=== PATIENT | female | born 1990 | race Caucasian/White ===

== ENCOUNTER 2019-07-03 17:26 | Observation (INO) | payer MEDICAID, OTHER ==
[2019-07-03] MEDS ORDERED: NA CHLORIDE 0.9% 1,000 ML ONE (18:03)
[2019-07-03] MEDS ORDERED: ONDANSETRON 4 MG/2 ML VIAL ONE (18:03)
[2019-07-03 18:52] LABS: Absolute Lymphocytes (CBC) 2.2 K/uL (0.7-4.9); Basophils % 0.2 % (0-1.3); Hematocrit 47.3 % (36.0-45.0); Lymphocytes % 12.5 % (15.3-44.8); MPV 7.5 fL (7.6-11.3); RBC Red Blood Cell Count 5.13 M/uL (3.86-4.86)
[2019-07-03] MEDS ORDERED: METRONIDAZOLE 500mg IVPB 500 MG/100 ML BAG IV ONE (19:31)
[2019-07-03] MEDS ORDERED: CIPROFLOXACIN 400mg IV 400 MG/200 ML BAG IV ONE (19:31)
[2019-07-03] MEDS ORDERED: FAMOTIDINE 20 MG/2 ML VIAL IV ONE (19:31)
[2019-07-03 20:12] LABS: ALT/SGPT 21 U/L (12-78); AST/SGOT 58 U/L (15-37); Albumin 2.2 g/dL (3.4-5.0); Alkaline Phosphatase 46 U/L (45-117); BUN Blood Urea Nitrogen 17 mg/dL (7-18); Bicarbonate 26 mmol/L (21-32); Bilirubin Direct < 0.1 mg/dL (0-0.2); Bilirubin Total 0.9 mg/dL (0.2-1.0); Glucose Level 77 mg/dL (74-106); Lipase 19 U/L (73-393); Protein, Total 5.3 g/dL (6.4-8.2); Sodium Level 134 mmol/L (136-145)
--- NOTE | 2019-07-03 20:53 | RAD REPORT ---
EXAM DESCRIPTION: CT - Abdomen Pelvis W Contrast - 07/03/2019 8:33 pm CLINICAL HISTORY: Abdominal pain/vomiting COMPARISON: 2015 TECHNIQUE: Computed axial tomography of the abdomen pelvis was obtained. 100 cc Isovue-300 was admin istered intravenously. Oral contrast was not requested which limits evaluation of bowel. All CT scans are performed using dose optimization technique as appropriate and may include automated exposure control or mA/KV adjustment according to patient size. FINDINGS: The liver, spleen, pancreas, adrenal and left kidney appear unremarkable. Tiny nonobstruct ing right renal calculus. Several small gallstones are present. The wall of the distal stomach is thickened. Fluid is present within nondilated large and small bowel. There is no evidence of diverticulitis. IMPRESSION: Cholelithiasis without evidence cholecystitis Thickening of the wall of the distal stomach may indicate inflammation
--- NOTE | 2019-07-03 21:17 | ER ---
Nurse's Notes [facility] Name: Olga Lujan Age: 29 yrs Sex: Female : 1990 Arrival Date: 07/03/2019 Time: 17:31 Bed 25 Private MD: None, None Diagnosis: Abdominal tenderness;Vomiting;Diarrhea, unspecified;Elevated white blood cell count;Gastritis, unspecified;Volume depletion;Cholelithiasis Presentation: 07/02 17:31 Chief complaint: Patient states: PT STATES SHE HAS BEEN VOMITTING AND HAVING DIARREA ls4 FOR 3 WEEKS EVERY TIME SHE EATS. SHE HAS A CONSTANT 2/10 PAIN IN HER ABDOMEN BEHIND HER "BELLY BUTTON" CONSTANTLY AND THAT BECOMES A 10/10 AFTER SHE EATS. 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 Coronavirus screen: Patient denies fever greater than 100.4F, cough, shortness of breath, or difficulty breathing. Proceed with normal triage process. Ebola Screen: No symptoms or risks identified at this time. Initial Sepsis Screen: Does the patient meet any 2 criteria? HR > 90 bpm. No. Patient's initial sepsis screen is negative. Does the patient have a suspected source of infection? No. Patient's initial sepsis screen is negative. Risk Assessment: Do you want to hurt yourself or someone else? Patient reports no desire to harm self or others. Onset of symptoms was June 11, 2019. Care prior to arrival: Medication(s) given: Normal saline infusion, 500 mL, REGLAN 10 MG. Transition of care: patient was not received from another setting of care. 17:31 Method Of Arrival: EMS: [facility] ls4 17:31 Acuity: DAMASO 3 ls4 Triage Assessment: 17:41 General: Appears in no apparent distress. uncomfortable, slender, Behavior is calm, ls4 cooperative. Pain: Complains of pain in umbilical area Pain currently is 2 out of 10 on a pain scale. at worst was 10 out of 10 on a pain scale. Quality of pain is described as shooting, throbbing, Pain began suddenly, Is intermittent, episodic, Alleviated by nothing. Aggravated by eating, drinking, Noted to be grimacing, quiet/stoic, resistant to movement, withdrawn, Also complains of decreased appetite, nausea, Current management is with ZOFRAN. Neuro: No deficits noted. Cardiovascular: No deficits noted. Respiratory: No deficits noted. Respiratory effort is even, unlabored, Breath sounds are clear bilaterally. Denies cough, shortness of breath labored breathing, pain with respiration, pain with cough, pain with movement, air hunger. GI: Abdomen is flat, non-distended, Bowel sounds present X 4 quads. Abd is non tender X 4 quads Reports epigastric pain, intolerance of fluids, intolerance of food, vomiting, since 3 weeks. : No deficits noted. No signs and/or symptoms were reported regarding the genitourinary system. Derm: No deficits noted. No signs and/or symptoms reported regarding the dermatologic system. Musculoskeletal: No deficits noted. No signs and/or symptoms reported regarding the musculoskeletal system. Historical: - Allergies: 17:38 NKDA; ls4 - Home Meds: 17:41 Zofran (as hydrochloride) 4 mg oral tab 1 tabs NEEDED [Active]; Pepcid Oral [Active];ls4 - PMHx: 17:38 Hodgkin Lymphoma; ls4 - PSHx: 17:38 Feet reconstruction; ; right hip; neck for lymph node removal; ls4 17:41 [id number] placed; ls4 - Immunization history:: Adult Immunizations up to date, Last tetanus immunization: unknown, Flu vaccine is not up to date. It has been more than one year since last vaccine. - Social history:: Smoking status: Patient/guardian denies using tobacco, the patient reports quitting approximately 1 years ago, Patient/guardian denies using alcohol, street drugs, The patient lives The patient attends The patient works The patient is unemployed. Screenin:46 Abuse screen: Denies threats or abuse. Denies injuries from another. Nutritional ls4 screening: No deficits noted. Tuberculosis screening: No symptoms or risk factors identified. Fall Risk None identified. Assessment: 19:00 Reassessment: Patient appears in no apparent distress at this time. Patient and/or ls4 family updated on plan of care and expected duration. Pain level reassessed. Patient is alert, oriented x 3, equal unlabored respirations, skin warm/dry/pink. 20:00 Reassessment: Patient appears in no apparent distress at this time. Patient and/or ls4 family updated on plan of care and expected duration. Pain level reassessed. Patient is alert, oriented x 3, equal unlabored respirations, skin warm/dry/pink. recollect complete. 21:00 Reassessment: Patient appears in no apparent distress at this time. Patient and/or ls4 family updated on plan of care and expected duration. Pain level reassessed. Patient is alert, oriented x 3, equal unlabored respirations, skin warm/dry/pink. Patient states symptoms have improved. 22:00 Reassessment: Patient appears in no apparent distress at this time. Patient and/or ls4 family updated on plan of care and expected duration. Pain level reassessed. Patient is alert, oriented x 3, equal unlabored respirations, skin warm/dry/pink. Patient states feeling better. 23:12 Reassessment: Patient appears in no apparent distress at this time. Patient and/or ls4 family updated on plan of care and expected duration. Pain level reassessed. Patient is alert, oriented x 3, equal unlabored respirations, skin warm/dry/pink. TOLERATING ICE CHIPS AND POPSICLE. Vital Signs: 17:31 BP 102 / 67; Pulse 106; Resp 17; Temp 98.4(O); Pulse Ox 98% on R/A; Weight 49.9 kg; ls4 Height 5 ft. 9 in. (175.26 cm); Pain 2/10; 19:05 BP 101 / 62; Pulse 104; Resp 14; Pulse Ox 99% on R/A; Pain 2/10; ls4 20:00 BP 106 / 71; Pulse 107; Resp 14; Pulse Ox 98% on R/A; Pain 2/10; ls4 21:00 BP 96 / 74; Pulse 104; Resp 14; Pulse Ox 99% on R/A; Pain 2/10; ls4 22:21 BP 98 / 76; Pulse 106; Resp 14; Temp 98.3(O); Pulse Ox 99% on R/A; Pain 3/10; ls4 17:31 Body Mass Index 16.24 (49.90 kg, 175.26 cm) ls4 ED Course: 17:31 Patient arrived in ED. ls4 17:31 None, None is Private Physician. ls4 17:32 Chema Rojas MD is Attending Physician. kdr 17:37 Triage completed. ls4 17:45 Arm band placed on. ls4 17:46 Patient has correct armband on for positive identification. Placed in gown. Bed in low ls4 position. Call light in reach. Side rails up X 1. Adult w/ patient. Valuables Left with patient. emerging technologies director on. Pulse ox on. NIBP on. Warm blanket given. Pillow given. Diet: Patient is NPO. 17:46 No provider procedures requiring assistance completed. ls4 18:34 Radiology exam delayed due to lab results not completed at this time. test mw3 not completed at this time. 18:38 Awaiting: PT DIFFICULT STICK. VERY ANXIOUS REGARDING NEEDLE STICKS. TIME TAKEN TO GIVE ls4 VERBAL REASSURANCE AND TO START IV WITH ONLY ONE STICK. PT WANTED TO REFUSE WHEN SHE FOUND WE WOULD NEED TO START IV. 18:38 Inserted saline lock: 22 gauge in right antecubital area, using aseptic technique. ls4 Blood collected. 18:38 Initial lab(s) drawn, by me, sent to lab. Patient maintains SpO2 saturation greater ls4 than 95% on room air. 19:26 Attending Physician role handed off by Chema Rojas MD naa 19:26 Elijah Barroso MD is Attending Physician. naa 19:30 by ED staff, OMER UNABLE TO COLLECT, 2 MISSED ATTEMPTS. ls4 20:00 Lab(s) recollected, by me, sent to lab. ls4 20:00 Maintain EMS IV. Dressing intact. Good blood return noted. Site clean \\T\\ dry. Gauge \\T\\ ls 4 site: 22 LEFT HAND . 20:31 CT completed. Patient tolerated procedure well. Patient moved back from CT. bq 20:33 CT Abd/Pelvis - IV Contrast Only In Process Unspecified. EDMS 20:56 Heidi Coughlin, MIKAYLA is Primary Nurse. ls4 21:15 Mary Vasquez MD is Hospitalizing Provider. naa 23:10 IV discontinued, intact, bleeding controlled, No redness/swelling at site. Pressure ls4 dressing applied. 23:11 Inserted saline lock: 22 gauge in left antecubital area, using aseptic technique. ls4 Administered Medications: 18:00 Drug: Zofran (Ondansetron) 4 mg Route: IVP; Site: right antecubital; ls4 18:00 Drug: NS 0.9% 1000 ml Route: IV; Rate: 1 bolus; Site: right antecubital; ls4 20:00 Follow up: IV Status: Completed infusion ls4 19:22 Drug: Pepcid 20 mg Route: IVP; Site: right antecubital; ls4 20:00 Follow up: Response: No adverse reaction; Marked relief of symptoms ls4 19:27 Drug: Flagyl 500 mg Volume: 100 ml; Route: IVPB; Rate: 200 ml/hr; Infused Over: 30 ls4 mins; Site: right antecubital; 20:00 Follow up: IV Status: Completed infusion; IV Intake: 100ml ls4 19:28 Drug: Cipro 400 mg Volume: 200 ml; Route: IVPB; Infused Over: 60 mins; Site: right ls4 antecubital; 20:30 Follow up: IV Status: Completed infusion; IV Intake: 200ml ls4 22:35 Drug: ProTONIX 40 mg Route: IVP; Site: left antecubital; ls4 23:09 Follow up: Response: No adverse reaction; Marked relief of symptoms ls4 Intake: 20:00 IV: 100ml; Total: 100ml. ls4 20:30 IV: 200ml; Total: 300ml. ls4 Outcome: 21:16 Decision to Hospitalize by Provider. naa 23:44 Admitted to Med/surg accompanied by nurse, via stretcher, room 225, with chart, Report ls4 called to DARRIN DEGROOT 23:45 Condition: stable ls4 07/03 00:01 Patient left the ED. mw2 Signatures: Dispatcher [employer] EDND Elijah Barroso MD MD cha Rittger, Kevin, MD MD kdr Quilty, Betty bq [place]brook, MyKena mw2 Radha Sommers mw3 Heidi Coughlin RN RN ls4 Corrections: (The following items were deleted from the chart) 07/02 23:46 23:44 Admitted to Med/surg accompanied by nurse, via stretcher, with chart, Report ls4 called to DARRIN DEGROOT ls4
--- NOTE | 2019-07-03 21:18 | EDPHYS ---
Physician Documentation [facility] Name: Olga Lujan Age: 29 yrs Sex: Female : 1990 Arrival Date: 07/03/2019 Time: 17:31 Bed 25 Private MD: None, None ED Physician Elijah Barroso HPI: 07/02 18:30 This 29 yrs old Female presents to ER via EMS with complaints of Abdominal kdr Pain. 18:30 The patient presents with abdominal pain that is diffuse. Onset: The symptoms/episode kdr began/occurred gradually, 1 year(s) ago. The symptoms do not radiate. Associated signs and symptoms: Pertinent positives: nausea, vomiting, and diarrhea. The symptoms are described as crampy, intermittent, waxing/waning. Modifying factors: The symptoms are alleviated by having diarrhea. Severity of pain: At its worst the pain was moderate severe incapacitating just prior to arrival. The patient has experienced similar episodes in the past, For about the past year, she has been loosing weight now totaling #110. She continues to have n/v/d after every ingestion.. The patient has been recently seen by a physician: The patient was seen in the last month at [facility]. States that they did not do much of a work-up and told her she had gastroenteritis. She has continued to have pain followed by n/v/d with every feeding. Historical: - Allergies: 17:38 NKDA; ls4 - Home Meds: 17:41 Zofran (as hydrochloride) 4 mg oral tab 1 tabs NEEDED [Active]; Pepcid Oral [Active];ls4 - PMHx: 17:38 Hodgkin Lymphoma; ls4 - PSHx: 17:38 Feet reconstruction; ; right hip; neck for lymph node removal; ls4 17:41 [id number] placed; ls4 - Immunization history:: Adult Immunizations up to date, Last tetanus immunization: unknown, Flu vaccine is not up to date. It has been more than one year since last vaccine. - Social history:: Smoking status: Patient/guardian denies using tobacco, the patient reports quitting approximately 1 years ago, Patient/guardian denies using alcohol, street drugs, The patient lives The patient attends The patient works The patient is unemployed. ROS: 18:30 Constitutional: Negative for fever, chills, and weight loss, Eyes: Negative for injury, kdr pain, redness, and discharge, ENT: Negative for injury, pain, and discharge, Neck: Negative for injury, pain, and swelling, Cardiovascular: Negative for chest pain, palpitations, and edema, Respiratory: Negative for shortness of breath, cough, wheezing, and pleuritic chest pain, Back: Negative for injury and pain, : Negative for injury, bleeding, discharge, and swelling, MS/Extremity: Negative for injury and deformity, Skin: Negative for injury, rash, and discoloration, Neuro: Negative for headache, weakness, numbness, tingling, and seizure activity. Psych: Negative for depression, anxiety, suicide ideation, homicidal ideation, and hallucinations, Allergy/Immunology: Negative for hives, rash, and allergies, Endocrine: Negative for neck swelling, polydipsia, polyuria, polyphagia, and marked weight changes, Hematologic/Lymphatic: Negative for swollen nodes, abnormal bleeding, and unusual bruising. 18:30 Abdomen/GI: Positive for abdominal pain, nausea, vomiting, and diarrhea, abdominal cramps, Stool is foul smelling and frothy., Negative for constipation, rectal pain, bowel incontinence. Exam: 18:30 Constitutional: This is a well developed, somewhat nourished patient who is awake, kdr alert, and in no acute distress. Head/Face: Normocephalic, atraumatic. Eyes: Pupils equal round and reactive to light, extra-ocular motions intact. Lids and lashes normal. Conjunctiva and sclera are non-icteric and not injected. Cornea within normal limits. Periorbital areas with no swelling, redness, or edema. Neck: Trachea midline, no thyromegaly or masses palpated, and no cervical lymphadenopathy. Supple, full range of motion without nuchal rigidity, or vertebral point tenderness. No Meningismus. Chest/axilla: Normal chest wall appearance and motion. Nontender with no deformity. No lesions are appreciated. Respiratory: Lungs have equal breath sounds bilaterally, clear to auscultation and percussion. No rales, rhonchi or wheezes noted. No increased work of breathing, no retractions or nasal flaring. Back: No spinal tenderness. No costovertebral tenderness. Full range of motion. Skin: Warm, dry with normal turgor. Normal color with no rashes, no lesions, and no evidence of cellulitis. MS/ Extremity: Pulses equal, no cyanosis. Neurovascular intact. Full, normal range of motion. Neuro: Awake and alert, GCS 15, oriented to person, place, time, and situation. Cranial nerves II-XII grossly intact. Motor strength 5/5 in all extremities. Sensory grossly intact. Cerebellar exam normal. Normal gait. Psych: Awake, alert, with orientation to person, place and time. Behavior, mood, and affect are within normal limits. 18:30 Cardiovascular: Rate: tachycardic, The patient becomes tachycardic with sitting. 18:30 Abdomen/GI: Inspection: Very flat, normal BS and diffusely tender, Bowel sounds: diminished, in all quadrants, Palpation: soft, mild abdominal tenderness, in all quadrants. Vital Signs: 17:31 BP 102 / 67; Pulse 106; Resp 17; Temp 98.4(O); Pulse Ox 98% on R/A; Weight 49.9 kg; ls4 Height 5 ft. 9 in. (175.26 cm); Pain 2/10; 19:05 BP 101 / 62; Pulse 104; Resp 14; Pulse Ox 99% on R/A; Pain 2/10; ls4 20:00 BP 106 / 71; Pulse 107; Resp 14; Pulse Ox 98% on R/A; Pain 2/10; ls4 21:00 BP 96 / 74; Pulse 104; Resp 14; Pulse Ox 99% on R/A; Pain 2/10; ls4 22:21 BP 98 / 76; Pulse 106; Resp 14; Temp 98.3(O); Pulse Ox 99% on R/A; Pain 3/10; ls4 17:31 Body Mass Index 16.24 (49.90 kg, 175.26 cm) ls4 MDM: 18:30 Data reviewed: vital signs, nurses notes, lab test result(s), radiologic studies. kdr Counseling: I had a detailed discussion with the patient and/or guardian regarding: the historical points, exam findings, and any diagnostic results supporting the discharge/admit diagnosis, lab results. 19:26 Patient medically screened. [facility] 07/02 17:55 Order name: Basic Metabolic Panel; Complete Time: 21:11 kdr 07/02 17:55 Order name: CBC with Diff; Complete Time: 19:26 kdr 07/02 17:55 Order name: Creatinine for Radiology; Complete Time: 21:11 kdr 07/02 17:55 Order name: Hepatic Function; Complete Time: 21:11 kdr 07/02 17:55 Order name: Lipase; Complete Time: 21:11 kdr 07/02 17:55 Order name: Rotavirus Antigen; Complete Time: 21:11 kdr 07/02 17:55 Order name: Stool Culture [facility] 07/02 17:55 Order name: Ova And Parasites kdr 07/02 17:55 Order name: Occult Blood; Complete Time: 21:11 kdr 07/02 17:55 Order name: Fecal Leukocyte Stain [facility] 07/02 20:22 Order name: Urine --Ancillary (enter results); Complete Time: 21:11 2 07/02 22:55 Order name: C.difficile GDH Ag [facility] 07/02 22:55 Order name: Urinalysis W/Microscopic [facility] 07/02 22:55 Order name: Thyroid Stimulating Hormone [facility] 07/02 17:55 Order name: IV Saline Lock; Complete Time: 22:21 kdr 07/02 17:55 Order name: Labs collected and sent; Complete Time: 22:21 kdr 07/02 17:55 Order name: CT Abd/Pelvis - IV Contrast Only; Complete Time: 21:11 kdr 07/02 18:10 Order name: Urine Test (obtain specimen); Complete Time: 19:18 ms 07/02 22:54 Order name: CONS Pharmacy Consult [facility] 07/02 22:55 Order name: Clear Liquid [facility] 07/02 22:55 Order name: CBC with Automated Diff [facility] 07/02 22:55 Order name: CBC with Automated Diff [facility] 07/02 22:55 Order name: Comprehensive Metabolic Panel [facility] 07/02 22:55 Order name: Comprehensive Metabolic Panel [facility] 07/02 18:55 Order name: Labs - recollect needed; Complete Time: 19:27 ms Administered Medications: 18:00 Drug: Zofran (Ondansetron) 4 mg Route: IVP; Site: right antecubital; ls4 18:00 Drug: NS 0.9% 1000 ml Route: IV; Rate: 1 bolus; Site: right antecubital; ls4 20:00 Follow up: IV Status: Completed infusion ls4 19:22 Drug: Pepcid 20 mg Route: IVP; Site: right antecubital; ls4 20:00 Follow up: Response: No adverse reaction; Marked relief of symptoms ls4 19:27 Drug: Flagyl 500 mg Volume: 100 ml; Route: IVPB; Rate: 200 ml/hr; Infused Over: 30 ls4 mins; Site: right antecubital; 20:00 Follow up: IV Status: Completed infusion; IV Intake: 100ml ls4 19:28 Drug: Cipro 400 mg Volume: 200 ml; Route: IVPB; Infused Over: 60 mins; Site: right ls4 antecubital; 20:30 Follow up: IV Status: Completed infusion; IV Intake: 200ml ls4 22:35 Drug: ProTONIX 40 mg Route: IVP; Site: left antecubital; ls4 23:09 Follow up: Response: No adverse reaction; Marked relief of symptoms ls4 Disposition: 07/03/19 21:16 Hospitalization ordered by Mary Vasquez for Inpatient Admission. Preliminary diagnosis are Abdominal tenderness, Vomiting, Diarrhea, unspecified, Elevated white blood cell count, Gastritis, unspecified, Volume depletion, Cholelithiasis. - Bed requested for Telemetry/MedSurg (Inpatient). - Status is Inpatient Admission. mw2 - Condition is Fair. - Problem is new. - Symptoms have improved. Signatures: Dispatcher [employer] EDElijah Kinney MD MD cha Rittger, Kevin, MD MD kdr Villarreal, Maria ms Garcia, Cindy, MIKAYLA RN Eder Rodriguez mw2 Heidi Coughlin RN RN ls4 Corrections: (The following items were deleted from the chart) 21:40 21:16 Hospitalization Ordered by Mary Vasqeuz MD for Inpatient Admission. Preliminary naa diagnosis is Abdominal tenderness; Vomiting; Diarrhea, unspecified; Elevated white blood cell count; Gastritis, unspecified; Volume depletion. Bed requested for Telemetry/MedSurg (Inpatient). Status is Inpatient Admission. Condition is Fair. Problem is new. Symptoms have improved. naa 23:01 21:40 07/03/2019 21:16 Hospitalization Ordered by Mary Vasquez MD for Inpatient Admission. Preliminary diagnosis is Abdominal tenderness; Vomiting; Diarrhea, unspecified; Elevated white blood cell count; Gastritis, unspecified; Volume depletion; Cholelithiasis. Bed requested for Telemetry/MedSurg (Inpatient). Status is Inpatient Admission. Condition is Fair. Problem is new. Symptoms have improved. naa 07/03 00:01 07/02 23:01 07/03/2019 21:16 Hospitalization Ordered by Mary Vasquez MD for Inpatient mw2 Admission. Preliminary diagnosis is Abdominal tenderness; Vomiting; Diarrhea, unspecified; Elevated white blood cell count; Gastritis, unspecified; Volume depletion; Cholelithiasis. Bed requested for Telemetry/MedSurg (Inpatient). Status is Inpatient Admission. Condition is Fair. Problem is new. Symptoms have improved. cg
[2019-07-03] MEDS ORDERED: PANTOPRAZOLE 40 MG INJ ONE (22:41)
--- NOTE | 2019-07-03 22:45 | P.HP ---
Certification for Inpatient Patient admitted to: Observation With expected LOS: <2 Midnights Patient will require the following post-hospital care: None Practitioner: I am a practitioner with admitting privileges, knowledge of patient current condition, hospital course, and medical plan of care. Services: Services provided to patient in accordance with Admission requirements found in Title 42 Section 412.3 of the Code of Federal Regulations Patient History Date of Service: 07/03/19 Reason for admission: Persistent nausea or vomiting History of Present Illness: 29-year-old female with past medical history of Hodgkin's lymphoma on chemotherapy last cycle was 2 months ago. Follow[address] with Dr. maria, presented to the ER today because of complaint of recurrent nausea vomiting and diarrhea since the last 3 weeks. She also complained of abdominal cramps associated with the nausea or vomiting. Cramps is more in the epigastric area. She takes her Zofran at home with no significant relief. She has be evaluated as Cesar 1 week ago and told she has gastroenteritis with no medication was given. S she presented today because she was feeling weak and unable to ambulate. She has significant weight loss since start of chemo for Hodgkin's lymphoma. She was started on IV fluid with antibiotics and she feels much better now. CT of the abdomen shows thickening of the gastric area consistent with possible inflammation Allergies No Known Drug Allergies Allergy (Verified 11/29/14 10:59) Unknown Home medications list reviewed: No Home Medications: NK [No Home Meds] 06/20/14 - Past Medical/Surgical History -: Van lymphoma on chemo -: -: Feet reconstruction -: Lymph node excision -: Port-A-Cath insertion - Family History Family History: Reviewed- Non-Contributory - Social History Smoking Status: Never smoker Alcohol use: No CD- Drugs: No Caffeine use: Yes Review of Systems General: Weakness, Unremarkable Eyes: Unremarkable ENT: Unremarkable Respiratory: Unremarkable Cardiovascular: Unremarkable Gastrointestinal: Nausea, Vomiting, Abdominal Pain, Diarrhea Genitourinary: Unremarkable Musculoskeletal: Unremarkable Integumentary: Unremarkable Neurological: Weakness, Unremarkable Physical Examination - Physical Exam General: Alert, Oriented x3, Cachectic HEENT: Atraumatic, Normocephalic, PERRLA, Other (Dry oral mucosa) Neck: Supple, 2+ carotid pulse no bruit, JVD not distended Respiratory: Clear to auscultation bilaterally, Normal air movement Cardiovascular: No edema, Normal pulses, Regular rate/rhythm, Normal S1 S2 Gastrointestinal: Normal bowel sounds, Soft and benign, Non-distended, No tenderness Musculoskeletal: No clubbing, No swelling Integumentary: No rashes, No breakdown Neurological: Normal speech, Normal strength at 5/5 x4 extr, Normal tone External genitalia: No edema, No lesions - Studies Laboratory Data (last 24 hrs) 07/03/19 20:00: Creatinine 0.57 07/03/19 20:00: Sodium 134 L, Potassium 4.0, BUN 17, Creatinine 0.54 L, Glucose 77, Total Bilirubin 0.9, AST 58 H, ALT 21, Alkaline Phosphatase 46, Lipase 19 L 07/03/19 18:37: WBC 17.9 H, Hgb 16.6 H, Hct 47.3 H, Plt Count 338 Microbiology Data (last 24 hrs): 07/03/19 18:48 Stool Rotavirus Antigen - Final 07/03/19 18:48 Stool Occult Blood - Final Imagings Data: CT abdomen FINDINGS: The liver, spleen, pancreas, adrenal and left kidney appear unremarkable. Tiny nonobstructing right renal calculus. Several small gallstones are present. The wall of the distal stomach is thickened. Fluid is present within nondilated large and small bowel. There is no evidence of diverticulitis. IMPRESSION: Cholelithiasis without evidence cholecystitis Thickening of the wall of the distal stomach may indicate inflammation Assessment and Plan - Problems (Diagnosis) (1) Gastroenteritis Current Visit: Yes Status: Acute (2) Dehydration Current Visit: Yes Status: Acute - Advance Directives Does patient have a Living Will: No Does patient have a Durable POA for Healthcare: No - Code Status/Comfort Care Code Status Assessed: Yes Code Status: Full Code Physician Review: Patient Assessed, Agree with Above Assessment and Plan Physician Review Additional Text: Gastroenteritis-possibly related to recent chemotherapy use -continue gentle IV fluid hydration. -continue IV Zofran p.r.n., will do scopolamine patch -continue empirical antibiotics with Flagyl and Levaquin -will obtain stool for ova and parasites -start patient on clear liquid diet and advanced as tolerated -if tolerating p.o. well in the a.m. patient can be discharged home DVT prophylaxis-subcutaneous heparin Advanced directives full code
[2019-07-03] MEDS ORDERED: ONDANSETRON 4 MG/2 ML VIAL IV PRN (22:47)
[2019-07-03] MEDS ORDERED: ACETAMINOPHEN 500 MG TAB PO PRN (22:47)
[2019-07-03] MEDS ORDERED: MORPHINE 2 MG/ML SYR IV PRN (22:47)
[2019-07-03] MEDS ORDERED: HYDRALAZINE HCL 20 MG/ML VIAL IV PRN (22:50)
[2019-07-03] MEDS ORDERED: SCOPOLAMINE HYDROBROMIDE PATCH TD ONE (22:51)
[2019-07-04] MEDS: D5 0.9 NS 1,000 ML IV SCH ×3 (00:13→12:20)
[2019-07-04 00:19] VITALS: BMI 16.5
[2019-07-04] MEDS: METRONIDAZOLE 250mg IVPB 250 MG/50 ML BAG IV SCH ×3 (01:00→16:29)
[2019-07-04] MEDS ORDERED: METRONIDAZOLE 500mg IVPB 500 MG/100 ML BAG IV ONE (01:47)
[2019-07-04] MEDS ORDERED: Levofloxacin500mg IV 500 MG/100 ML BAG IV SCH (05:00)
[2019-07-04 05:59] LABS: Absolute Lymphocytes (CBC) 2.4 K/uL (0.7-4.9); Basophils % 0.2 % (0-1.3); Hematocrit 38.6 % (36.0-45.0); Lymphocytes % 15.5 % (15.3-44.8); MPV 7.5 fL (7.6-11.3); RBC Red Blood Cell Count 4.24 M/uL (3.86-4.86)
[2019-07-04 06:30] LABS: ALT/SGPT 16 U/L (12-78); AST/SGOT 23 U/L (15-37); Albumin 2.1 g/dL (3.4-5.0); Alkaline Phosphatase 40 U/L (45-117); BUN Blood Urea Nitrogen 12 mg/dL (7-18); Bicarbonate 27 mmol/L (21-32); Bilirubin Total 0.7 mg/dL (0.2-1.0); Glucose Level 81 mg/dL (74-106); Protein, Total 4.2 g/dL (6.4-8.2); Sodium Level 136 mmol/L (136-145)
[2019-07-04 06:33] LABS: Potassium 2.5 mmol/L (3.5-5.1)
[2019-07-04] MEDS: POTASSIUM CL SA 10 MEQ TAB PO SCH ×3 (08:11→14:32)
[2019-07-04] MEDS: POTASSIUM CL 40 MEQ in NA CHLORIDE 0.9% 500 ML IV SCH ×2 (08:11→12:15)
[2019-07-04] MEDS: PANTOPRAZOLE 40MG TABLET PO SCH ×2 (08:11→16:29)
[2019-07-04] MEDS ORDERED: ENOXAPARIN 40 MG/0.4 ML SQ SCH (09:00)
[2019-07-04 09:48] VITALS: O2SAT 98
[2019-07-04 14:26] LABS: C.diff Antigen/Toxin Ag neg : Tox neg (NEG : NEG)
[2019-07-04 17:20] VITALS: BP 89/53; TEMP 97.8
--- NOTE | 2019-07-04 20:16 | DS ---
Date of Discharge: 07/04/2019 Discharge Diagnoses: 1.Acute gastroenteritis. 2.Acute dehydration. 3.Hypokalemia. 4.Hodgkin lymphoma, on chemotherapy. 5.Hyponatremia, resolved. 6.Severe protein-calorie malnutrition. Hospital Course: Patient is a 29-year-old female with past medical history of Hodgkin lymphoma, on c hemotherapy, comes in with persistent nausea and vomiting. Patient was admitted to the hospital for IV hydration and IV antibiotics. CT scan showed thickening of the gastric area consistent with infla mmation. Patient also had some diarrhea. Stool studies were obtained. C difficile was negative. F ecal occult blood was also negative. Fecal leukocyte stain showed few present. Rotavirus was negati ve as well. Culture and sensitivity are pending at this time. The patient's white blood cell count trended down. She felt significantly better with treatment. Her blood pressure improved. She does not have any signs of sepsis. She is not febrile or tachycardic. Overall, patient did well. Her di et was advanced and was able to tolerate a GI soft diet. Patient was then cleared for discharge and was sent home in a stable condition. Activity: As tolerated. Medications: As per medication reconciliation list. Diet: Patient to be on a bland diet. Followup: To follow up with GI and Oncology regarding her lymphoma in the next 1-2 weeks. Follow up with primary care physician in 2-3 days. Return to ER for worsening condition. Physical Examination: General: Awake, alert, oriented x3. No acute distress. Frail, cachectic female. BMI 16. CV: S1, S2. Respiratory: Moving air well bilaterally. Abdomen: Soft, nontender, nondistended. Positive bowel sounds. Extremities: No clubbing, cyanosis, or edema. Neurologic: Nonfocal. SA/MODL Voice ID: [id number] Report ID: [id number]
== END 2019-07-04 18:36 | disposition home or self-care (01) ==
LOC: ER 17:26 → ERHOLD 23:04 → 2ND 23:13
PROVIDERS: ADMIT Internal Medicine; ATTEND Family Medicine
DX: K52.9 Noninfective gastroenteritis and colitis, unspecified (principal); E86.0 Dehydration; C81.90 Hodgkin lymphoma, unspecified, unspecified site; E87.6 Hypokalemia; E87.1 Hypo-osmolality and hyponatremia; E43 Unspecified severe protein-calorie malnutrition; Z68.1 Body mass index [BMI] 19.9 or less, adult; E86.9 Volume depletion, unspecified; K80.20 Calculus of gallbladder without cholecystitis without obstruction; Z79.899 Other long term (current) drug therapy
CPT/HCPCS: 96365; 96361; 96368; 87045; 85025 ×2; 80048; 36415; 89055; 87177; 82274; 81025; 84132; 80076; 87046; 87209; 84443; 87324; 83690; 80053; 87449; 87425; 74177; 96375; 99285; Q9967; C9113; J1650; J7042 ×2; J7040 ×2; J7030; J2405 ×2; J0744; G0378 ×2

== ENCOUNTER 2021-07-31 11:16 | Inpatient (IN) | payer OTHER ==
--- OUTSIDE RECORDS SUMMARY | 2021-07-31 11:18 | XMS REPORT | Continuity of Care Document ---
:1990 Author Organization [facility] t Address [address] [place] [address] Care Team Providers Name Role Phone KAREN Attending Clinician Unavailable JERE WATSON Attending Clinician Unavailable JERE WATSON Admitting Clinician Unavailable Problems This patient has no known problems. Allergies, Adverse Reactions, Alerts This patient has no known allergies or adverse reactions. Medications This patient has no known medications. Procedures This patient has no known procedures. Encounters Start End Encounter Admission Attending Care Care Encounter Source Date/Time Date/Time Type Type Clinicians Facility Department ID 2019-09-21 2019-09-21 Outpatient [facility] [id number] [place] 00:00:00 00:00:00 GABE 471 [facility] 2019-09-21 2019-09-21 Outpatient [facility] [id number] [place] 00:00:00 00:00:00 GABE 665 [facility] 2019-09-21 2019-09-21 Outpatient [facility] [id number] [place] 00:00:00 00:00:00 GABE 969 [facility] i 2019-09-02 2019-09-02 Outpatient [facility] [id number] [place] 00:00:00 00:00:00 GABE 870 [facility] i 2019-09-02 2019-09-02 Outpatient [facility] [id number] [place] 00:00:00 00:00:00 GABE 234 [facility] i 2019-04-01 2019-04-02 Outpatient [facility] [id number] [place] 00:00:00 00:00:00 Johnnie WATSON Method [facility] [address] [facility] 2019-02-10 2019-02-10 Outpatient [facility] [id number] [place] 00:00:00 00:00:[address] GABE [address] Results This patient has no known results.
[2021-07-31 12:29] LABS: Absolute Lymphocytes (CBC) 1.5 K/uL (0.7-4.9); Hematocrit 13.9 % (36.0-45.0); Lymphocytes % 3.7 % (15.3-44.8); MPV 8.2 fL (7.6-11.3); RBC Red Blood Cell Count 1.25 M/uL (3.86-4.86)
[2021-07-31 12:34] LABS: Protime INR 2.29
[2021-07-31 12:46] LABS: Albumin 1.5 g/dL (3.4-5.0); Potassium 4.2 mmol/L (3.5-5.1)
[2021-07-31 12:48] LABS: Bilirubin Total 5.3 mg/dL (0.2-1.0)
[2021-07-31] MEDS ORDERED: MORPHINE 2 MG/ML SYR ONE (12:57)
[2021-07-31] MEDS ORDERED: NA CHLORIDE 0.9% 100 ML IV ONE (12:57)
[2021-07-31] MEDS ORDERED: LORazepam 2 MG/ML VIAL ONE (12:57)
[2021-07-31] MEDS ORDERED: ONDANSETRON 4 MG/2 ML VIAL ONE (12:57)
[2021-07-31] MEDS ORDERED: AZITHROMYCIN 500 MG INJ IVPB ONE (12:57)
[2021-07-31] MEDS ORDERED: CEFTRIAXONE 1000 MG/VIAL ONE (12:57)
[2021-07-31] MEDS ORDERED: NA CHLORIDE 0.9% 1,000 ML ONE (12:57)
[2021-07-31 13:04] LABS: Anisocytosis 2+; Basophilic Stippling 1+; Blood Morphology Comment NOTED (NOT SEEN); Macrocytosis 1+; Platelet Estimate ADEQ; Polychromasia 1+; Toxic Granulation PRESENT
--- NOTE | 2021-07-31 13:05 | RAD REPORT ---
EXAM DESCRIPTION: RAD - Chest Single View - 07/31/2021 12:41 pm CLINICAL HISTORY: SOB COMPARISON: Portable 11/05/2014 ; lung base images from 07/03/2019 CT study TECHNIQUE: AP portable chest image was obtained 07/31/2021 12:41 pm . FINDINGS: There is complete or near complete opacification of the right hemithorax with tracheal rem aining in the midline. Interstitial markings are minimally prominent in the left lung field without p eripheral mass or consolidation. Right hilum and right heart border are obscured. Heart does not appe ar to be enlarged. No pneumothorax. No left-sided measurable pleural effusion. Right-sided Port-A-Cat h is in place. Tip is at the distal SVC. No acute bony abnormality seen. No acute aortic findings arturo pected. IMPRESSION: Complete opacification of the right hemithorax. This is probably a large right pleural e ffusion with lung parenchymal atelectasis. Right hemithorax mass lesion could be present in addition to fluid. Follow-up CT chest imaging is rec ommended.
[2021-07-31] MEDS ORDERED: ACETAMINOPHEN 500 MG TAB PO PRN (14:51)
[2021-07-31] MEDS ORDERED: ONDANSETRON 4 MG/2 ML VIAL IV PRN (14:51)
--- NOTE | 2021-07-31 15:11 | RAD REPORT ---
EXAM DESCRIPTION: CT - Chest For Pe Angio - 07/31/2021 2:28 pm CLINICAL HISTORY: noShortness of breath, history of lymphoma COMPARISON: THORAX WO CONTRAST dated 06/23/2015; Abdomen Pelvis W Contrast dated 07/03/2019; Chest A bdomen Pelvis W Cont dated 10/18/2015 TECHNIQUE: Dynamically enhanced 3 mm thick images of the chest were obtained during administration o f approximately 150mL Isovue 370 IV contrast. Coronal and oblique MIP reconstruction images were gene rated and reviewed. Exam utilizes a protocol to evaluate the pulmonary arterial tree. All CT scans are performed using dose optimization technique as appropriate and may include automated exposure control or mA/KV adjustment according to patient size. FINDINGS: No pulmonary emboli are identified. The aorta as imaged shows no acute or suspicious finding. No pericardial thickening or effusion. No c ardiomegaly. There is a large right-sided pleural effusion present there is complete right lower lobe atelectasis and near complete right upper lobe atelectasis sparing only a small portion of the medial right apex. There is a consolidated airspace process maintaining the volume of the right middle lobe. Left lung field is clear of any significant process. There is circumferential narrowing of the right mainstem b ronchus at the bifurcation into the right upper lobe and bronchus intermedius. Right middle lobe bron chus show significant circumferential wall thickening. No left-sided pleural effusion. There is no pn eumothorax. Spine mediastinal detail is limited. There is a congested or edematous appearance to the mediastinum and bilateral hilar regions likely a combination of edema and mediastinal lymphadenopathy. There is a n overall fluid retention pattern throughout the subcutaneous fatty tissues. No chest wall masses or bulky axillary lymphadenopathy. Right-sided Port-A-Cath is in place. The enlarged liver is grossly abnormal with numerous variably sized low-density masses throughout par enchyma. The liver is only partially imaged. Likewise there is splenomegaly with heterogeneous parenc hymal attenuation only partially imaged. There is extensive bone destructive change throughout the imaged portions of the spine. The T8-10 and T12 body shows significant bone loss change. Overall vertebral body height is maintained in T8-10. T here is partial loss in height approximately 20% in the T12 body. Multiple rib metastatic lesions are present. IMPRESSION: No pulmonary emboli identified. Large right-sided pleural effusion with complete atelectasis of the right lower lobe and near complet e atelectasis of the right upper lobe.Airspace infiltration into the right middle lobe maintains righ t middle lobe volume. Right to left mediastinal shift is evident due to the large right pleural effusion. Edema and/or abno rmal lymphadenopathy is present in the mediastinum bilateral hilar regions. There is fluid retention throughout the subcutaneous fatty tissues. Grossly abnormal liver and spleen with extensive tumor infiltration of the parenchyma. Extensive bone destructive metastatic change in the spine most pronounced in the T8-T12 region. Bone loss changes in the T12 body are concerning for possible compression fracture. No encroachment of the central canal. Patient has a known lymphoma diagnosis but no recent imaging to establish whether these are none or p rogressive findings.
--- NOTE | 2021-07-31 15:27 | ER ---
Nurse's Notes [facility] Name: Olga Lujan Age: 31 yrs Sex: Female : 1990 Arrival Date: 07/31/2021 Time: 11:34 Bed 4 Private MD: Diagnosis: Anemia, unspecified Presentation: 07/31 11:34 Chief complaint: Patient states: shortness of breath and cough that began 2 days ago ss and is getting much worse now with back pain. HX of Liver CA and Hodgkins lymphoma. EMS reports that initial O2 on RA was 88-90%. Coronavirus screen: Client presents with at least one sign or symptom that may indicate coronavirus-19. Provider contacted for isolation considerations. Ebola Screen: Patient denies exposure to infectious person. Patient denies travel to an Ebola-affected area in the 21 days before illness onset. Initial Sepsis Screen: Does the patient meet any 2 criteria? RR > 20 per min. HR > 90 bpm. Does the patient have a suspected source of infection? Yes: Productive cough/pneumonia. Risk Assessment: Do you want to hurt yourself or someone else? Patient reports no desire to harm self or others. Onset of symptoms was July 29, 2021. 11:34 Acuity: DAMASO 2 ss 11:34 Method Of Arrival: [facility] Assessment: 12:12 General: Appears uncomfortable, Behavior is cooperative, anxious. Respiratory: Reports cespedes shortness of breath cough that is pain with cough Pain is 7 out of 10 on a pain scale. Onset: The symptoms/episode began/occurred gradually, the patient has moderate shortness of breath. Historical: - Allergies: 11:59 NKDA; ss - PMHx: 11:59 Hodgkin Lymphoma; Liver CA; ss - PSHx: 11:59 Appendectomy; Lymph nodes removed; section; ss - Immunization history:: Adult Immunizations up to date. - Social history:: Smoking status: Patient reports the use of cigarette tobacco products, smokes one-half pack cigarettes per day. - Family history:: not pertinent. Screenin:11 Abuse screen: Denies threats or abuse. Nutritional screening: No deficits noted. cespedes Tuberculosis screening: No symptoms or risk factors identified. Fall Risk IV access (20 points). Assessment: 12:11 Pain: Complains of pain in back. Cardiovascular: Rhythm is sinus tachycardia. cespedes Respiratory: Airway is patent Respiratory effort is labored, shallow, Breath sounds are diminished bilaterally. Derm: Skin is jaundiced. Vital Signs: 11:34 BP 109 / 53; Pulse 144; Resp 36; Temp 99.2(O); Pulse Ox 99% on 2 lpm NC; Weight 52.16 ss kg; Height 5 ft. 8 in. (172.72 cm); Pain 8/10; 13:18 BP 100 / 49; Pulse 139; Resp 2; Pulse Ox 92% on 2 lpm NC; cespedes 14:50 BP 92 / 48; Pulse 135; Resp 22; Pulse Ox 90% on 2 lpm NC; cespedes 11:34 Body Mass Index 17.49 (52.16 kg, 172.72 cm) ss ED Course: 11:34 Patient arrived in ED. ds1 11:46 Elyse Richardson MD is Attending Physician. ma2 11:54 Samantha Grayson, RN is Primary Nurse. cespedes 11:56 Blood Culture Adult (2) Sent. cespedes 11:56 CBC with Diff Sent. cespedes 11:56 CMP Sent. cespedes 11:56 Lactate Sent. cespedes 11:56 Protime (+inr) Sent. cespedes 11:56 Ptt, Activated Sent. cespedes 11:59 Triage completed. ss 11:59 Arm band placed on right wrist. ss 12:11 No provider procedures requiring assistance completed. Accessed [facility]. cespedes 12:11 Patient has correct armband on for positive identification. Bed in low position. cespedes 12:43 Chest Single View XRAY In Process Unspecified. EDMS 14:31 CT Chest For PE Angio In Process Unspecified. EDMS 15:26 Elyse Lima MD is Hospitalizing Provider. ma2 Administered Medications: 13:00 Drug: NS 0.9% 1000 ml Route: IV; Rate: 1 bolus; Site: Other; cespedes 13:00 Drug: Rocephin (cefTRIAXone) 1 grams Route: IV; Rate: calculated rate; Site: Other; cespedes 13:12 Follow up: Response: No adverse reaction; IV Status: Completed infusion cespedes 13:00 Drug: AZITHromycin 500 mg Route: IVPB; Infused Over: 1 hrs; Site: Other; cespedes 13:00 Drug: Ativan (LORazepam) 1 mg Route: IVP; Site: Other; cespedes 13:12 Follow up: Response: No adverse reaction cespedes 13:00 Drug: morphine 2 mg Route: IVP; Site: Other; cespedes 13:12 Follow up: Response: No adverse reaction cespedes 13:00 Drug: Zofran (Ondansetron) 4 mg Route: IVP; Site: Other; cespedes 13:12 Follow up: Response: No adverse reaction cespedes 13:12 Follow up: Response: No adverse reaction cespedes 13:00 Drug: NS 0.9% 1000 ml Route: IV; Rate: 1 bolus; Site: Other; cespedes 18:00 CANCELLED (errorr): morphine 4 mg IVP once; RASS on ADMIN: Combtv4, Very Agttd3, cespedes Agttd2, Rstlss1, AlertClm0, Drwsy-1, Lt Sdtn-2, Mod Sdtn-3, Dp Sdtn-4, UnArsble-5 18:00 CANCELLED (Duplicate Order): Zofran (Ondansetron) 4 mg IVP once; over 2 minutes cespedes Outcome: 15:26 Decision to Hospitalize by Provider. ma2 16:58 Patient left the ED. ph Signatures: Dispatcher [employer] [facility] Annmarie Norris ds1 Genesis Dillon RN RN Мария Cannon RN RN Elyse Richardson MD MD [facility] Samantha Grayson RN RN cespedes
--- NOTE | 2021-07-31 15:27 | EDPHYS ---
Physician Documentation [facility] Name: Olga Lujan Age: 31 yrs Sex: Female : 1990 Arrival Date: 07/31/2021 Time: 11:34 Bed 4 Private MD: ED Physician Elyse Richardson HPI: 07/31 12:25 This 31 yrs old Female presents to ER via EMS with complaints of Shortness Of Breath. ma2 12:25 Associated signs and symptoms: Pertinent negatives: productive cough, dizziness, ma2 hemoptysis, loss of consciousness, visual changes. Associated signs and symptoms: Pertinent positives: productive cough, Pertinent negatives: chest pain, nausea, vomiting. Patient has a history of liver cancer, Hodgkin lymphoma, she has not been following up with any doctor over the last year, no chemotherapy or radiation therapy during last year, she presents with cough shortness of breath for 3 days, patient is also tachypneic and tachycardic. She stated she never had this before. Of note she had DVT in right upper extremity according to patient where she was on Lovenox shots for short period of time. Patient does not take blood thinners or any other medication at this time. Historical: - Allergies: 11:59 NKDA; ss - PMHx: 11:59 Hodgkin Lymphoma; Liver CA; ss - PSHx: 11:59 Appendectomy; Lymph nodes removed; section; ss - Immunization history:: Adult Immunizations up to date. - Social history:: Smoking status: Patient reports the use of cigarette tobacco products, smokes one-half pack cigarettes per day. - Family history:: not pertinent. ROS: 12:25 Constitutional: Negative for fever, chills, and weight loss. ma2 12:25 All other systems are negative. Exam: 12:25 Constitutional: Patient is in respiratory distress, tachypneic tachycardic pale ma2 looking. Eyes: Pupils equal round and reactive to light, extra-ocular motions intact. Lids and lashes normal. Conjunctiva and sclera are non-icteric and not injected. Cornea within normal limits. Periorbital areas with no swelling, redness, or edema. ENT: Nares patent. No nasal discharge, no septal abnormalities noted. Tympanic membranes are normal and external auditory canals are clear. Oropharynx with no redness, swelling, or masses, exudates, or evidence of obstruction, uvula midline. Mucous membranes moist. Neck: Trachea midline, no thyromegaly or masses palpated, and no cervical lymphadenopathy. Supple, full range of motion without nuchal rigidity, or vertebral point tenderness. No Meningismus. Chest/axilla: Normal chest wall appearance and motion. Nontender with no deformity. No lesions are appreciated. Cardiovascular: Tachycardic to 144 bpm, with a normal S1 and S2. No gallops, murmurs, or rubs. Normal PMI, no JVD. No pulse deficits. Respiratory: In respiratory distress breathing 36 breaths/min, working hard to breathe using accessory muscles, diffuse Rales in bilateral bases, otherwise no wheezes Abdomen/GI: Soft, non-tender, with normal bowel sounds. No distension or tympany. No guarding or rebound. No evidence of tenderness throughout. Back: No spinal tenderness. No costovertebral tenderness. Full range of motion. Skin: Warm, dry with normal turgor. Normal color with no rashes, no lesions, and no evidence of cellulitis. MS/ Extremity: Pulses equal, no cyanosis. Neurovascular intact. Full, normal range of motion. Neuro: Awake and alert, GCS 15, oriented to person, place, time, and situation. Cranial nerves II-XII grossly intact. Motor strength 5/5 in all extremities. Sensory grossly intact. Cerebellar exam normal. Normal gait. Vital Signs: 11:34 BP 109 / 53; Pulse 144; Resp 36; Temp 99.2(O); Pulse Ox 99% on 2 lpm NC; Weight 52.16 ss kg; Height 5 ft. 8 in. (172.72 cm); Pain 8/10; 13:18 BP 100 / 49; Pulse 139; Resp 2; Pulse Ox 92% on 2 lpm NC; cespedes 14:50 BP 92 / 48; Pulse 135; Resp 22; Pulse Ox 90% on 2 lpm NC; cespedes 11:34 Body Mass Index 17.49 (52.16 kg, 172.72 cm) ss MDM: 11:46 Patient medically screened. ma2 12:25 Differential diagnosis: Anemia Anxiety Reaction Bronchitis Myocardial Infarction ma2 pneumonia, pulmonary edema, Pulmonary Embolism reactive airway disease. 13:06 Data reviewed: vital signs, nurses notes, EMS record. ED course: Discussed with Dr. epi Higuera and she advised that patient can be admitted to our hospital for transfusion and evaluation for anemia. As far as Hodgkin lymphoma patient can follow-up on outpatient basis with her oncologist in [place].. ED course: Patient has anemia hemoglobin 3.9 she also has sepsis with tachypnea tachycardia WBC 40.. 07/31 11:55 Order name: Blood Culture Adult (2) 07/31 11:55 Order name: CBC with Diff 07/31 11:55 Order name: CMP; Complete Time: 12:52 07/31 11:55 Order name: Lactate; Complete Time: 12:52 07/31 11:55 Order name: Protime (+inr); Complete Time: 12:52 07/31 11:55 Order name: Ptt, Activated; Complete Time: 12:52 07/31 11:55 Order name: Urine Culture 07/31 11:55 Order name: Urine Microscopic Only 07/31 12:22 Order name: SARS-COV-2 RT PCR (Document "Date of Onset" if Symptomatic); Complete Time: [facility] 15:05 07/31 13:05 Order name: Manual Differential [facility] 07/31 14:36 Order name: Type And Screen 07/31 14:59 Order name: Basic Metabolic Panel [facility] 07/31 14:59 Order name: Basic Metabolic Panel [facility] 07/31 11:52 Order name: Chest Single View XRAY; Complete Time: 15:05 [facility] 07/31 12:02 Order name: CT Chest For PE Angio; Complete Time: 15:26 [facility] 07/31 14:59 Order name: CBC with Automated Diff [facility] 07/31 14:59 Order name: CBC with Automated Diff [facility] 07/31 15:56 Order name: Antibody Identification [facility] 07/31 16:11 Order name: Packed RBC Leukored [facility] 07/31 16:17 Order name: Lactate Sepsis 2 HR Follow-up [facility] 07/31 11:54 Order name: IV Saline Lock - Large Bore; Complete Time: 11:56 07/31 11:55 Order name: Cardiac monitoring; Complete Time: 11:55 07/31 11:55 Order name: EKG - Nurse/Tech; Complete Time: 13:48 07/31 11:55 Order name: Labs collected and sent; Complete Time: 11:55 07/31 11:55 Order name: O2 Per Protocol; Complete Time: 11:55 cespedes 07/31 11:55 Order name: O2 Sat Monitoring; Complete Time: 11:55 [place]pedes 07/31 12:12 Order name: Labs - recollect needed: recollect all tubes; Complete Time: 12:25 bd 07/31 12:56 Order name: Transfuse: 3 units pRBC, rate: 1 unit over 1 hour ma2 07/31 14:58 Order name: CONS Physician Consult EDMS 07/31 14:58 Order name: Heart Healthy EDMS 07/31 14:58 Order name: EKG Electrocardiogram EDMS 07/31 14:58 Order name: EKG Electrocardiogram EDMS 07/31 14:59 Order name: EKG Electrocardiogram EDMS 07/31 14:59 Order name: EKG Electrocardiogram EDMS 07/31 14:59 Order name: EKG Electrocardiogram EDMS 07/31 14:59 Order name: EKG Electrocardiogram EDMS 07/31 14:59 Order name: EKG Electrocardiogram EDMS 07/31 14:59 Order name: EKG Electrocardiogram EDMS 07/31 14:59 Order name: EKG Electrocardiogram EDMS 07/31 14:59 Order name: EKG Electrocardiogram EDMS 07/31 14:59 Order name: EKG Electrocardiogram EDMS Administered Medications: 13:00 Drug: NS 0.9% 1000 ml Route: IV; Rate: 1 bolus; Site: Other; cespedes 13:00 Drug: Rocephin (cefTRIAXone) 1 grams Route: IV; Rate: calculated rate; Site: Other; cespedes 13:12 Follow up: Response: No adverse reaction; IV Status: Completed infusion cespedes 13:00 Drug: AZITHromycin 500 mg Route: IVPB; Infused Over: 1 hrs; Site: Other; cespedes 13:00 Drug: Ativan (LORazepam) 1 mg Route: IVP; Site: Other; cespedes 13:12 Follow up: Response: No adverse reaction cespedes 13:00 Drug: morphine 2 mg Route: IVP; Site: Other; cespedes 13:12 Follow up: Response: No adverse reaction cespedes 13:00 Drug: Zofran (Ondansetron) 4 mg Route: IVP; Site: Other; cespedes 13:12 Follow up: Response: No adverse reaction cespedes 13:12 Follow up: Response: No adverse reaction cespedes 13:00 Drug: NS 0.9% 1000 ml Route: IV; Rate: 1 bolus; Site: Other; cespedes 18:00 CANCELLED (errorr): morphine 4 mg IVP once; RASS on ADMIN: Combtv4, Very Agttd3, cespedes Agttd2, Rstlss1, AlertClm0, Drwsy-1, Lt Sdtn-2, Mod Sdtn-3, Dp Sdtn-4, UnArsble-5 18:00 CANCELLED (Duplicate Order): Zofran (Ondansetron) 4 mg IVP once; over 2 minutes cespedes Disposition Summary: 07/31/21 15:26 Hospitalization Ordered Hospitalization Status: Inpatient Admission [facility] Provider: Elyse Lima Location: Telemetry/MedSurg (observation) ma2 Condition: Stable ma Problem: new ma2 Symptoms: are unchanged nh2 Bed/Room Type: Standard [facility] Room Assignment: 214(07/31/21 15:50) bd Diagnosis - Anemia, unspecified [facility] Forms: - Medication Reconciliation Form nh2 - SBAR form nh2 Signatures: Dispatcher [employer] EDMS Cyndi Zhao Shelby, RN RN Elyse Richardson MD MD [facility] Samantha Grayson RN RN Corrections: (The following items were deleted from the chart) 11:56 11:54 Accucheck ordered. [facility] 15:50 15:26 ma2 bd
[2021-07-31 17:14] VITALS: BMI 17.4
[2021-07-31] MEDS: NA CHLORIDE 0.9% 1,000 ML IV SCH (17:34)
--- NOTE | 2021-07-31 18:45 | P.HP ---
Certification for Inpatient Patient admitted to: Inpatient With expected LOS: >2 Midnights Patient will require the following post-hospital care: None Practitioner: I am a practitioner with admitting privileges, knowledge of patient current condition, hospital course, and medical plan of care. Services: Services provided to patient in accordance with Admission requirements found in Title 42 Section 412.3 of the Code of Federal Regulations Patient History Date of Service: 07/31/21 Reason for admission: History of Hodgkin's lymphoma with severe anemia History of Present Illness: Patient is a 31-year-old female who came to the hospital with severe anemia. Patient has a history of Hodgkin's lymphoma. Patient has not been the most compliant patient with her treatments. 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 However, her Hodgkin's lymphoma is fairly advanced at this stage. She has been getting chemotherapy for 10 years. She no longer wants to get chemotherapy. She will be admitted to the hospital for blood transfusion. Allergies No Known Drug Allergies Allergy (Verified 11/29/14 10:59) Unknown Home Medications: NK [No Home Meds] 07/31/21 - Past Medical/Surgical History Has patient received pneumonia vaccine in the past: No Diabetic: No -: Van lymphoma on chemo -: -: Feet reconstruction -: Lymph node excision -: Port-A-Cath insertion -: Appendectomy - Family History Father Notes: no medical condition Mother Medical History: Cancer Notes: bone ca - Social History Smoking Status: Former smoker Alcohol use: No CD- Drugs: No Caffeine use: No Place of Residence: Home Review of Systems 10-point ROS is otherwise unremarkable Physical Examination - Vital Signs Temperature: 99.0 F Blood Pressure: 108/55 Pulse: 136 Respirations: 30 Pulse Ox (%): 89 - Physical Exam General: Alert, In no apparent distress, Oriented x3, Cachectic, Other (Patient is very emaciated and disheveled) HEENT: Atraumatic, PERRLA, Mucous membr. moist/pink, EOMI, Sclerae nonicteric Neck: Supple, 2+ carotid pulse no bruit, No LAD, Without JVD or thyroid abnormality Respiratory: Clear to auscultation bilaterally, Normal air movement Cardiovascular: Regular rate/rhythm, Normal S1 S2, No murmurs Gastrointestinal: Normal bowel sounds, Soft and benign, Non-distended, No tenderness Musculoskeletal: No clubbing, No swelling, No tenderness Integumentary: No rashes Neurological: Normal speech, Sensation intact, Cranial nerves 3-12 intact, Abnormal gait, Abnormal strength Lymphatics: No axilla or inguinal lymphadenopathy - Studies Laboratory Data (last 24 hrs) 07/31/21 12:20: PT 25.6 H, INR 2.29, APTT 45.7 H 07/31/21 12:20: Sodium 139, Potassium 4.2, BUN 26 H, Creatinine 0.81, Glucose 53 L, Total Bilirubin 5.3 H*, AST 103 H, ALT 21, Alkaline Phosphatase 303 H 07/31/21 12:20: WBC 41.3 H*, Hgb 3.9 L*, Hct 13.9 L*, Plt Count 294 Assessment & Plan - Problems (Diagnosis) (1) Severe anemia Current Visit: Yes Status: Acute (2) Hodgkins lymphoma Current Visit: Yes Status: Acute (3) Lactic acidosis Current Visit: Yes Status: Acute - Plan Plan: 1. Transfuse 3 units of packed red blood cells. 2. Gentle hydration 3. Monitor labs 4. Monitor electrolytes 5. GI and DVT prophylaxis Have discussed long-term care for patient as she is very emaciated and cachectic. She can barely take a couple steps without getting short of breath and fatigue. She is not wanting any chemotherapy at this time. We will discuss hospice care with the patient. - Advance Directives Does patient have a Living Will: No Does patient have a Durable POA for Healthcare: No - Code Status/Comfort Care Code Status Assessed: Yes Code Status: Full Code Critical Care: No Time Spent Managing PTS Care (In Minutes): 45
[2021-07-31] MEDS: PANTOPRAZOLE 40 MG INJ IVP SCH (22:07)
[2021-08-01] MEDS ORDERED: VANCOMYCIN 1.25 GM in NA CHLORIDE 0.9% 250 ML IVPB ONE (00:01)
[2021-08-01 04:40] LABS: Absolute Lymphocytes (CBC) 0.9 K/uL (0.7-4.9); Lymphocytes % 3.2 % (15.3-44.8); MPV 7.9 fL (7.6-11.3)
[2021-08-01 04:47] LABS: Hematocrit 19.6 % (36.0-45.0)
[2021-08-01 04:49] LABS: Potassium 3.6 mmol/L (3.5-5.1)
[2021-08-01] MEDS: PANTOPRAZOLE 40 MG INJ IVP SCH ×2 (08:14→20:11)
[2021-08-01] MEDS: NA CHLORIDE 0.9% 1,000 ML IV SCH ×2 (08:18→17:40)
[2021-08-01] MEDS: VANCOMYCIN 1 GM in NA CHLORIDE 0.9% 250 ML IVPB SCH ×2 (10:03→20:10)
[2021-08-01] MEDS ORDERED: clonazePAM 0.5 MG TAB PO ONE (11:00)
[2021-08-01] MEDS: MORPHINE 2 MG/ML SYR IV PRN (11:30)
[2021-08-01] MEDS ORDERED: VANCOMYCIN 1 GM in NA CHLORIDE 0.9% 250 ML IVPB SCH ×2 (12:00→12:01)
[2021-08-01] MEDS ORDERED: NA CHLORIDE 0.9% 500 ML IV ONE (13:13)
[2021-08-01] MEDS: clonazePAM 0.5 MG TAB PO SCH ×2 (14:00→20:11)
[2021-08-01] MEDS: METHYLPREDNISOLONE 125 MG INJ IV SCH ×2 (15:46→18:00)
[2021-08-01] MEDS: NA CHLORIDE 0.9% 250 ML IV SCH ×2 (16:09→16:15)
[2021-08-01] MEDS: GUAIFENESIN/CODEINE 5ML UCUP PO PRN (16:13)
[2021-08-01] MEDS: BENZONATATE 100 MG CAP PO PRN (22:05)
[2021-08-01] MEDS ORDERED: NA CHLORIDE 0.9% 250 ML ONE (23:03)
[2021-08-02] MEDS: METHYLPREDNISOLONE 125 MG INJ IV SCH ×2 (01:00→07:00)
[2021-08-02] MEDS ORDERED: NA CHLORIDE 0.9% 250 ML ONE (04:15)
--- NOTE | 2021-08-02 07:55 | EKG ---
Test Date: 2021-08-01 Test Time: 14:40:00 Doctor Of Audiology: LIVIA MEASUREMENT RESULTS: Intervals: Rate: 123 MI: 130 QRSD: 90 QT: 280 QTc: 400 [place]: P: 49 MI: 130 QRS: 31 T: 23 INTERPRETIVE STATEMENTS: Sinus tachycardia Cannot rule out Anterior infarct, age undetermined Abnormal ECG Compared to ECG 06/20/2014 15:11:44 Myocardial infarct finding now present Sinus rhythm no longer present Electronically Signed On 08-02-21 07:54:32 CDT by Sloan Cutler
--- NOTE | 2021-08-02 07:57 | EKG ---
Test Date: 2021-07-31 Test Time: 13:40:47 Engineer: RAMYA MEASUREMENT RESULTS: Intervals: Rate: 137 [place]: 112 QRSD: 84 QT: 376 QTc: 567 [place]: P: [place]: 112 QRS: 55 T: 36 INTERPRETIVE STATEMENTS: Sinus tachycardia Nonspecific T wave abnormality Abnormal ECG Compared to ECG 06/20/2014 15:11:44 T-wave abnormality now present Sinus rhythm no longer present Electronically Signed On 08-02-21 07:56:41 CDT by Sloan Cutler
[2021-08-02] MEDS: clonazePAM 0.5 MG TAB PO SCH ×3 (11:06→21:54)
[2021-08-02] MEDS: VANCOMYCIN 1 GM in NA CHLORIDE 0.9% 250 ML IVPB SCH ×2 (11:06→21:54)
[2021-08-02] MEDS: PANTOPRAZOLE 40 MG INJ IVP SCH ×2 (11:07→21:54)
[2021-08-02 12:03] LABS: Absolute Lymphocytes (CBC) 0.5 K/uL (0.7-4.9); Hematocrit 25.2 % (36.0-45.0); Lymphocytes % 1.9 % (15.3-44.8); MPV 7.7 fL (7.6-11.3); RBC Red Blood Cell Count 2.74 M/uL (3.86-4.86)
[2021-08-02] MEDS: NA CHLORIDE 0.9% 1,000 ML IV SCH ×2 (12:39→20:20)
[2021-08-02] MEDS: BENZONATATE 100 MG CAP PO PRN (17:56)
[2021-08-02] MEDS ORDERED: ALBUTEROL 2.5 MG/3 ML NEB SOL NEB PRN (19:41)
[2021-08-03] MEDS: NA CHLORIDE 0.9% 1,000 ML IV SCH ×3 (04:07→21:26)
--- NOTE | 2021-08-03 08:06 | P.PN ---
Subjective Date of Service: 08/01/21 Awaiting for blood transfusion Review of Systems 10-point ROS is otherwise unremarkable Physical Examination - Vital Signs Temperature: 99.0 F Blood Pressure: 108/55 Pulse: 136 Respirations: 30 Pulse Ox (%): 89 - Physical Exam General: Alert, In no apparent distress, Oriented x3 HEENT: Atraumatic, PERRLA, EOMI Neck: Supple, JVD not distended Respiratory: Clear to auscultation bilaterally, Normal air movement Cardiovascular: Regular rate/rhythm, Normal S1 S2 Gastrointestinal: Normal bowel sounds, No tenderness Musculoskeletal: No tenderness Integumentary: No rashes Neurological: Normal speech, Normal tone, Normal affect Lymphatics: No axilla or inguinal lymphadenopathy - Studies Microbiology Data (last 24 hrs): 07/31/21 11:50 Blood - Blood Aerobic Blood Culture - Final Strep Pneumoniae 07/31/21 11:50 Blood - Blood Blood Culture Gram Stain - Final 07/31/21 11:50 Blood - Blood Anaerobic Blood Culture - Final Strep Pneumoniae 07/31/21 11:50 Blood - Blood Gram Stain - Final 07/31/21 11:35 Blood - Blood Aerobic Blood Culture - Final Strep Pneumoniae 07/31/21 11:35 Blood - Blood Blood Culture Gram Stain - Final 07/31/21 11:35 Blood - Blood Anaerobic Blood Culture - Final Strep Pneumoniae 07/31/21 11:35 Blood - Blood Gram Stain - Final Medications List Reviewed: Yes Assessment & Plan - Problems (Diagnosis) (1) Severe anemia Current Visit: Yes Status: Acute (2) Hodgkins lymphoma Current Visit: Yes Status: Acute (3) Lactic acidosis Current Visit: Yes Status: Acute - Plan Plan: 1. Transfuse 3 units of packed red blood cells. 2. Gentle hydration 3. Monitor labs 4. Monitor electrolytes 5. GI and DVT prophylaxis Have discussed long-term care for patient as she is very emaciated and cachectic. She can barely take a couple steps without getting short of breath and fatigue. She is not wanting any chemotherapy at this time. We will discuss hospice care with the patient. Discharge Plan: Home Plan to discharge in: Greater than 2 days - Advance Directives Does patient have a Living Will: No Does patient have a Durable POA for Healthcare: No - Code Status/Comfort Care Code Status: Full Code Critical Care: No Time Spent Managing PTS Care (In Minutes): 45
--- NOTE | 2021-08-03 08:07 | P.PN ---
Date of Service: 08/03/21 Subjective Patient is still short of breath. Patient will need thoracentesis. Patient is refusing this but I have talked to her extensively and told her it would make her feel better. Family also wanted to have it done. If she is agreeable then we will proceed. Family continuing with hospice at dischargel for the time being but if patient improves and her strength increases they may want patient to try for chemotherapy. Review of Systems 10-point ROS is otherwise unremarkable Physical Examination - Vital Signs Reviewed - Physical Exam General: Alert, In no apparent distress, Oriented x3; cachectic and emaciated Respiratory: Clear to auscultation bilaterally, Normal air movement Cardiovascular: Regular rate/rhythm, Normal S1 S2 Gastrointestinal: Normal bowel sounds, No tenderness Neurological: No focal deficits Assessment & Plan - Problems (Diagnosis) (1) Severe anemia Current Visit: Yes Status: Acute (2) Hodgkins lymphoma Current Visit: Yes Status: Acute (3) Lactic acidosis Current Visit: Yes Status: Acute - Plan Continue with plan of care as mentioned below: 1. Status post blood transfusion and hemoglobin 8.0. 2. Continue with heplock IV and monitor labs closely 3. Discussed with family regarding hospice care. 4. Monitor electrolytes 5. GI and DVT prophylaxis Have discussed long-term care for patient as she is very emaciated and cachectic. She can barely take a couple steps without getting short of breath and fatigue. She is not wanting any chemotherapy at this time. She realizes she is not strong enough. Family has agreed to go with a [facility]. We will get a Pleurx catheter placed prior to discharge. Discharge Plan: Home Plan to discharge in: Greater than 2 days - Advance Directives Does patient have a Living Will: No Does patient have a Durable POA for Healthcare: No
--- NOTE | 2021-08-03 08:07 | P.PN ---
Date of Service: 08/02/21 Subjective Spoke with family in depth and they are wanting to do hospice care. We will monitor H&H at this time. Review of Systems 10-point ROS is otherwise unremarkable Physical Examination - Vital Signs Reviewed - Physical Exam General: Alert, In no apparent distress, Oriented x3 Respiratory: Clear to auscultation bilaterally, Normal air movement Cardiovascular: Regular rate/rhythm, Normal S1 S2 Gastrointestinal: Normal bowel sounds, No tenderness Neurological: Normal speech, Normal tone, Normal affect Assessment & Plan - Problems (Diagnosis) (1) Severe anemia Current Visit: Yes Status: Acute (2) Hodgkins lymphoma Current Visit: Yes Status: Acute (3) Lactic acidosis Current Visit: Yes Status: Acute - Plan Continue with plan of care as mentioned below: 1. Status post blood transfusion and hemoglobin 8.0. 2. Continue with gentle hydration and monitor labs closely 3. Discussed with family regarding hospice care. 4. Monitor electrolytes 5. GI and DVT prophylaxis Have discussed long-term care for patient as she is very emaciated and cachectic. She can barely take a couple steps without getting short of breath and fatigue. She is not wanting any chemotherapy at this time. We will discuss hospice care with the patient. Discharge Plan: Home Plan to discharge in: Greater than 2 days - Advance Directives Does patient have a Living Will: No Does patient have a Durable POA for Healthcare: No
[2021-08-03] MEDS: clonazePAM 0.5 MG TAB PO SCH ×3 (08:09→21:27)
[2021-08-03] MEDS: VANCOMYCIN 1 GM in NA CHLORIDE 0.9% 250 ML IVPB SCH (08:09)
[2021-08-03] MEDS: PANTOPRAZOLE 40 MG INJ IVP SCH ×2 (08:09→21:27)
[2021-08-03] MEDS: GUAIFENESIN/CODEINE 5ML UCUP PO PRN ×2 (08:10→21:46)
[2021-08-03] MEDS: BENZONATATE 100 MG CAP PO PRN (08:10)
[2021-08-03 09:22] LABS: Absolute Lymphocytes (CBC) 0.5 K/uL (0.7-4.9); Hematocrit 23.3 % (36.0-45.0); Lymphocytes % 1.8 % (15.3-44.8); MPV 7.5 fL (7.6-11.3); RBC Red Blood Cell Count 2.52 M/uL (3.86-4.86)
[2021-08-03 09:30] LABS: BUN Blood Urea Nitrogen 23 mg/dL (7-18); Bicarbonate 25 mmol/L (21-32); Glucose Level 155 mg/dL (74-106); Potassium 3.1 mmol/L (3.5-5.1); Sodium Level 141 mmol/L (136-145)
[2021-08-03] MEDS: MORPHINE 2 MG/ML SYR IV PRN ×2 (09:42→22:39)
[2021-08-03] MEDS ORDERED: POTASSIUM 25 MEQ EFFERV TAB PO ONE (12:17)
[2021-08-03 12:25] LABS: Anisocytosis 3+; Blood Morphology Comment NOTED (NOT SEEN); Platelet Estimate ADEQ
[2021-08-03] MEDS ORDERED: NA CHLORIDE 0.9% 250 ML ONE (15:40)
[2021-08-03] MEDS ORDERED: clonazePAM 0.5 MG TAB PO ONE (17:30)
[2021-08-04] MEDS: VANCOMYCIN 1 GM in NA CHLORIDE 0.9% 250 ML IVPB SCH ×3 (00:20→20:59)
[2021-08-04] MEDS: BENZONATATE 100 MG CAP PO PRN (04:32)
[2021-08-04] MEDS: MORPHINE 2 MG/ML SYR IV PRN ×2 (04:51→12:00)
[2021-08-04 05:09] LABS: Absolute Lymphocytes (CBC) 0.7 K/uL (0.7-4.9); Hematocrit 31.6 % (36.0-45.0); Lymphocytes % 3.7 % (15.3-44.8); MPV 7.8 fL (7.6-11.3)
[2021-08-04] MEDS: NA CHLORIDE 0.9% 1,000 ML IV SCH (06:04)
[2021-08-04 06:58] LABS: BUN Blood Urea Nitrogen 19 mg/dL (7-18); Bicarbonate 27 mmol/L (21-32); Glucose Level 62 mg/dL (74-106); Magnesium 1.7 mg/dL (1.8-2.4); Potassium 3.8 mmol/L (3.5-5.1); Sodium Level 141 mmol/L (136-145)
[2021-08-04] MEDS: clonazePAM 0.5 MG TAB PO SCH ×3 (09:59→20:58)
[2021-08-04] MEDS: PANTOPRAZOLE 40 MG INJ IVP SCH ×2 (09:59→20:59)
[2021-08-04] MEDS ORDERED: ALBUMIN HUMAN 25% 100 ML IV ONE (13:02)
[2021-08-04] MEDS ORDERED: FUROSEMIDE 20 MG/ 2ML VIAL IV ONE (13:02)
[2021-08-04] MEDS ORDERED: FUROSEMIDE 20 MG/ 2ML VIAL IV STA (13:13)
[2021-08-04] MEDS ORDERED: METHYLPREDNISOLONE 125 MG INJ IV ONE (13:14)
[2021-08-04] MEDS ORDERED: ALBUMIN HUMAN 25% 100 ML IV STA (13:14)
[2021-08-04] MEDS: Levofloxacin500mg IV 500 MG/100 ML BAG IV SCH (13:44)
--- NOTE | 2021-08-04 15:01 | RAD REPORT ---
EXAM DESCRIPTION: US - Chest - 08/04/2021 2:50 pm CLINICAL HISTORY: pleural effusion COMPARISON: Chest For Pe Angio dated 07/31/2021; PET CTSKULL THIGH dated 03/07/2015 FINDINGS: A large right pleural effusion is visualized. Significant atelectatic right lung seen. A s mall amount of left pleural fluid also present.
--- NOTE | 2021-08-04 15:03 | RAD REPORT ---
EXAM DESCRIPTION: RAD - Chest Single View - 08/04/2021 2:48 pm CLINICAL HISTORY: pneumonia Chest pain. COMPARISON: Chest Single View dated 07/31/2021; CHEST SINGLE VIEW dated 11/05/2014; CHEST SINGLE VIEW dated 07/27/2014; CHEST SINGLE VIEW dated 07/25/2014 FINDINGS: Portable technique limits examination quality. Large right pleural effusion is present. Right port catheter is in place. No significant right to lef t midline shift. Mild moderate left lung opacities are present with small left pleural effusion. Card iac size is not well assessed.
[2021-08-04] MEDS ORDERED: LIDOCAINE 1% 20 ML MDV ONE (15:18)
--- NOTE | 2021-08-04 16:34 | RAD REPORT ---
EXAM DESCRIPTION: RAD - Chest Single View - 08/04/2021 4:27 pm CLINICAL HISTORY: post thoracentesis Chest pain. COMPARISON: Chest Single View dated 08/04/2021; Chest Single View dated 07/31/2021; CHEST SINGLE VIEW dated 11/05/2014; CHEST SINGLE VIEW dated 07/27/2014 FINDINGS: Portable technique limits examination quality. Right pleural effusion has mildly decreased in size. No postprocedure pneumothorax. Bilateral pulmona ry opacities are seen with underinflated lungs. Right port catheter is in place. IMPRESSION: No postprocedure pneumothorax.
--- NOTE | 2021-08-04 16:43 | P.OP ---
Television Service Engineer: MIKAYLA Jenkins Preoperative diagnosis: Pleural effusion Postoperative diagnosis: Pleural effusion Primary procedure: Thoracentesis Anesthesia: local anesthesia-1% lidocaine Estimated blood loss: 1cc Specimen: pleural effusion Findings: 950cc yellow Operative Technique: Pt is a 31yo who was admitted for dyspnea. Pt had a large pleural effusion. Patient was prepped and draped sterilely. 1% lidocaine was used for numbing. Landmarks identified through ultrasound. Upper border of the liver utilized to enter into the pleural space. 950cc removed of yellowish colored fluids. No complications. Repeat chest x-ray shows some improvement of the pleural effusion. Complications: None Condition: Good
[2021-08-04] MEDS: METHYLPREDNISOLONE 125 MG INJ IV SCH (16:47)
[2021-08-04 18:05] LABS: Body Fluid WBC 6310 /mm^3
[2021-08-04 18:10] LABS: Appearance TURBID (CLEAR); Body Fluid Source PLEURAL; Color of fluid Yellow (COLORLESS)
[2021-08-05] MEDS: METHYLPREDNISOLONE 125 MG INJ IV SCH ×5 (00:23→23:38)
[2021-08-05 06:51] LABS: Absolute Lymphocytes (CBC) 0.3 K/uL (0.7-4.9); Hematocrit 30.8 % (36.0-45.0); Lymphocytes % 2.1 % (15.3-44.8); MPV 8.2 fL (7.6-11.3); RBC Red Blood Cell Count 3.33 M/uL (3.86-4.86)
[2021-08-05 07:12] LABS: ALT/SGPT 21 U/L (12-78); AST/SGOT 15 U/L (15-37); Albumin 1.8 g/dL (3.4-5.0); Alkaline Phosphatase 276 U/L (45-117); BUN Blood Urea Nitrogen 21 mg/dL (7-18); Bicarbonate 28 mmol/L (21-32); Bilirubin Total 2.3 mg/dL (0.2-1.0); Glucose Level 160 mg/dL (74-106); Magnesium 1.9 mg/dL (1.8-2.4); NT PRO-BNP 3552 pg/mL (<125); Phosphorus 2.5 mg/dL (2.5-4.9); Potassium 3.9 mmol/L (3.5-5.1); Sodium Level 139 mmol/L (136-145)
--- NOTE | 2021-08-05 07:39 | RAD REPORT ---
EXAM DESCRIPTION: RAD - Chest Single View - 08/05/2021 7:25 am CLINICAL HISTORY: pneumonia COMPARISON: Portable chest 08/04/2021, CT chest 07/31/2021 TECHNIQUE: AP portable chest image was obtained 08/05/2021 7:25 am . FINDINGS: Lung volumes remain low. Large right-sided pleural effusion is still present and without s ignificant change. Patchy left lung field parenchymal changes are present could be atelectasis, edema or infiltrate. No significant lung parenchymal abnormality was seen on the left side at the time of the July 31 CT study. No large left-sided pleural effusion. No pneumothorax. Right-sided Port-A-Cath is in place. IMPRESSION: No substantial change the chest from August 04 imaging. Patchy lower left lung field opac ification remains. No change to the large right-sided pleural effusion.
[2021-08-05] MEDS ORDERED: NA CHLORIDE 0.9% 0 ML ONE (08:01)
[2021-08-05] MEDS: clonazePAM 0.5 MG TAB PO SCH ×3 (08:27→20:24)
[2021-08-05] MEDS: PANTOPRAZOLE 40 MG INJ IVP SCH ×2 (08:27→20:24)
[2021-08-05] MEDS: VANCOMYCIN 1.25 GM in NA CHLORIDE 0.9% 250 ML IVPB SCH ×2 (10:22→20:23)
[2021-08-05] MEDS: Levofloxacin500mg IV 500 MG/100 ML BAG IV SCH (13:25)
[2021-08-05] MEDS: MORPHINE 2 MG/ML SYR IV PRN (18:46)
[2021-08-05] MEDS ORDERED: HYDROMORPHONE HCL 1 MG/ML INJ IV PRN (18:57)
[2021-08-05] MEDS ORDERED: MAGNES/ALUMIN/SIMET 30ML UCUP PO ONE (19:04)
--- NOTE | 2021-08-05 20:27 | P.PN ---
Date of Service: 08/04/21 Subjective Patient agreeable to thoracentesis. We will do a thoracentesis and remove a liter. Spoke with general surgery, Dr. Casillas, and he will place a Pleur-x catheter on Friday. Patient should be able to discharge to hospice Review of Systems 10-point ROS is otherwise unremarkable Physical Examination - Vital Signs Reviewed - Physical Exam General: Alert, In no apparent distress, Oriented x3; cachectic and emaciated Respiratory: Diminished breath sounds on the right side Cardiovascular: Regular rate/rhythm, Normal S1 S2 Gastrointestinal: Normal bowel sounds, No tenderness Neurological: No focal deficits Assessment & Plan - Problems (Diagnosis) (1) Severe anemia Current Visit: Yes Status: Acute (2) Hodgkins lymphoma Current Visit: Yes Status: Acute (3) Lactic acidosis Current Visit: Yes Status: Acute (4) Pleural effusion Current Visit: Yes Status: Acute - Plan Continue with plan of care as mentioned below: 1. Status post blood transfusion and hemoglobin stable. . 2. Completed thoracentesis and 950 cc of fluid removed. Chest x-ray with some minimal improvement. Patient able to breathe a little bit better. 3. Patient to get Pleurx catheter Friday morning and will discharge with hospice 4. Monitor electrolytes 5. GI and DVT prophylaxis Have discussed long-term care for patient as she is very emaciated and cachectic. She can barely take a couple steps without getting short of breath and fatigue. She is not wanting any chemotherapy at this time. She realizes she is not strong enough. Family has agreed to go with a [facility] hospice. We will get a Pleurx catheter placed prior to discharge. Discharge Plan: Home Plan to discharge in: Greater than 2 days - Advance Directives Does patient have a Living Will: No Does patient have a Durable POA for Healthcare: No
--- NOTE | 2021-08-05 20:29 | P.PN ---
Date of Service: 08/05/21 Subjective Patient doing well with no new complaints. She did have some abdominal pain. Abdomen feels a little distended. We will do a CT abdomen and pelvis. Pleurx catheter in the morning. Review of Systems 10-point ROS is otherwise unremarkable Physical Examination - Vital Signs Reviewed - Physical Exam General: Alert, In no apparent distress, Oriented x3; cachectic and emaciated Respiratory: Diminished breath sounds on the right side Cardiovascular: Regular rate/rhythm, Normal S1 S2 Gastrointestinal: Abdomen distended slightly Neurological: No focal deficits Assessment & Plan - Problems (Diagnosis) (1) Severe anemia Current Visit: Yes Status: Acute (2) Hodgkins lymphoma Current Visit: Yes Status: Acute (3) Lactic acidosis Current Visit: Yes Status: Acute (4) Pleural effusion Current Visit: Yes Status: Acute - Plan Continue with plan of care as mentioned below: 1. Status post blood transfusion and hemoglobin stable. . 2. Completed thoracentesis and 950 cc of fluid removed on 08/04. Chest x-ray with some minimal improvement. Patient able to breathe a little bit better. 3. Patient to get Pleurx catheter Friday morning and will discharge with hospice 4. Monitor electrolytes 5. GI and DVT prophylaxis Have discussed long-term care for patient as she is very emaciated and cachectic. She can barely take a couple steps without getting short of breath and fatigue. She is not wanting any chemotherapy at this time. She realizes she is not strong enough. Family has agreed to go with a [facility] hospice. We will get a Pleurx catheter placed prior to discharge. Discharge Plan: Home Plan to discharge in: Greater than 2 days - Advance Directives Does patient have a Living Will: No Does patient have a Durable POA for Healthcare: No
[2021-08-05] MEDS ORDERED: MAGNES/ALUMIN/SIMET 30ML UCUP PO PRN (22:00)
[2021-08-06] MEDS: METHYLPREDNISOLONE 125 MG INJ IV SCH ×4 (06:00→23:59)
[2021-08-06] MEDS: VANCOMYCIN 1.25 GM in NA CHLORIDE 0.9% 250 ML IVPB SCH ×2 (08:59→21:31)
[2021-08-06] MEDS: PANTOPRAZOLE 40 MG INJ IVP SCH ×2 (09:00→21:32)
[2021-08-06] MEDS: clonazePAM 0.5 MG TAB PO SCH ×3 (09:00→21:32)
[2021-08-06] MEDS: MORPHINE 2 MG/ML SYR IV PRN ×5 (13:05→21:31)
[2021-08-06] MEDS: Levofloxacin 750mg IV 750 MG/150 ML BAG IV SCH (13:06)
--- NOTE | 2021-08-06 13:59 | RAD REPORT ---
EXAM DESCRIPTION: CT - Abdomen Pelvis W Contrast - 08/06/2021 12:29 am CLINICAL HISTORY: Abdominal pain TECHNIQUE: Axial computed tomography images of the abdomen and pelvis with intravenous contrast. S agittal and coronal reformatted images were created and reviewed. This CT exam was performed using one or more of the following dose reduction techniques: automated exposure control, adjustment of t he mA and/or kV according to patient size, and/or use of iterative reconstruction technique. COMPARISON: CT Abdomen Pelvis dated 07/03/2019 FINDINGS: Lung bases: Moderate right middle and lower lobe consolidation. Patchy groundglass opaci ties within the left upper lobe, left lower lobe and lingula. Pulmonary nodules on the left measuring up to 8 mm in size, new from the prior. Pleural space: Large right and small to moderate left pleural effusions. Mediastinum: Mediastinal and bilateral hilar lymphadenopathy. Index subcarinal lymph node measures 2.1 cm in short axis. ABDOMEN: Liver: The liver is enlarged. Innumerable hypodense lesions, new from the prior. Gallbladder and bile ducts: Gallstones within a contracted gallbladder. No ductal dilation. Pancreas: Unremarkable. No mass. No ductal dilation. Spleen: The spleen is enlarged and heterogeneous. Subtle underlying hypodense lesions, new from the prior. Adrenals: Unremarkable. No mass. Kidneys and ureters: Punctate right renal calculi. No hydronephrosis. Stomach and bowel: Moderate stool. No bowel obstruction. No appreciable mucosal thickening. PELVIS: Appendix: The appendix is not definitively visualized. No findings to suggest acute appendicitis. Bladder: Unremarkable. No mass. Reproductive: Unremarkable as visualized. ABDOMEN and PELVIS: Intraperitoneal space: Moderate abdominal and pelvic ascites. No free air. Bones/joints: Thoracolumbar levoscoliosis centered at T12. Interval development of mixed lytic and sclerotic lesions involving the sternum, bilateral ribs, numerous vertebral bodies, the sacrum, and b ilateral pelvis. Interval compression deformities at T8, T9, T10, T12, L3. These appear fairly well c orticated. No dislocation. Soft tissues: Diffuse body wall edema. Vasculature: Unremarkable. No abdominal aortic aneurysm. Lymph nodes: Enlarged gastrohepatic, ana hepatic, portacaval, right external iliac and right ingu inal lymph nodes, new from the prior. Index right inguinal lymph node measures 1.5 cm in short axis. IMPRESSION: 1. Interval development of findings compatible with hepatic, splenic, lymphatic, pulmo nary and osseous metastases. 2. Diffuse body wall edema. Moderate abdominal and pelvic ascites. 3. Large right and small to moderate left pleural effusions. Right middle and lower lobe consolidat ion (atelectasis and/or infiltrate). Multifocal left-sided infiltrates. 4. Other findings as above. Electronically signed by: Henrry Mendoza MD 08/06/2021 12:21 AM CDT Due to temporary technical issues with the PACS/Fluency reporting system, reports are being signed by the in house radiologists without review as a courtesy to insure prompt reporting. The interpreting radiologist is fully responsible for the content of the report
--- NOTE | 2021-08-06 14:47 | P.PN ---
Subjective Date of Service: 08/06/21 Chief Complaint: History of Hodgkin's lymphoma with severe anemia Subjective: No new changes Physical Examination - Vital Signs Temperature: 98.2 F Blood Pressure: 104/60 Pulse: 90 Respirations: 18 Pulse Ox (%): 88 - Studies Medications List Reviewed: Yes Assessment And Plan Physician Review: Patient Assessed, Agree with Above Assessment and Plan Physician Review Additional Text: - Physical Exam General: Alert, In no apparent distress, Oriented x3; cachectic and emaciated Respiratory: Diminished breath sounds on the right side Cardiovascular: Regular rate/rhythm, Normal S1 S2 Gastrointestinal: Abdomen distended slightly Neurological: No focal deficits Assessment & Plan 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 Discharge Plan: Home Plan to discharge in: Greater than 2 days
[2021-08-06] MEDS: MIDODRINE HCL 5 MG TABLET PO SCH (21:32)
[2021-08-06] MEDS: ENSURE ENLIVE 237 ML CAN PO SCH (21:47)
[2021-08-07] MEDS: METHYLPREDNISOLONE 125 MG INJ IV SCH ×3 (06:43→18:18)
[2021-08-07] MEDS: MORPHINE 2 MG/ML SYR IV PRN ×8 (06:44→22:35)
[2021-08-07] MEDS: PANTOPRAZOLE 40 MG INJ IVP SCH ×2 (08:48→20:33)
[2021-08-07] MEDS: FUROSEMIDE 40 MG TABLET PO SCH (08:49)
[2021-08-07] MEDS: MIDODRINE HCL 5 MG TABLET PO SCH ×2 (08:49→20:33)
[2021-08-07] MEDS: VANCOMYCIN 1.25 GM in NA CHLORIDE 0.9% 250 ML IVPB SCH ×2 (08:49→20:32)
[2021-08-07] MEDS: clonazePAM 0.5 MG TAB PO SCH ×3 (08:49→20:33)
[2021-08-07] MEDS: ENSURE ENLIVE 237 ML CAN PO SCH ×3 (08:49→20:53)
[2021-08-07] MEDS ORDERED: Ringers Lactate 1,000 ML IV ONE (09:19)
[2021-08-07] MEDS ORDERED: FUROSEMIDE 40 MG/4 ML VIAL IV ONE (09:23)
--- NOTE | 2021-08-07 09:26 | P.PN ---
Subjective Date of Service: 08/07/21 Chief Complaint: History of Hodgkin's lymphoma with severe anemia Subjective: No new changes, Tolerating diet (States she is getting adequate pain medication Scheduled for Pleurx catheter placement today Awaiting hospice evaluation) Physical Examination - Vital Signs Temperature: 98 F Blood Pressure: 116/72 Pulse: 79 Respirations: 17 Pulse Ox (%): 90 - Studies Medications List Reviewed: Yes Assessment And Plan - Code Status/Comfort Care Comfort Measures: Hospice Care Physician Review: Patient Assessed, Agree with Above Assessment and Plan Physician Review Additional Text: 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 - Problems (Diagnosis) (1) Severe anemia Current Visit: Yes Status: Acute (2) Hodgkins lymphoma Current Visit: Yes Status: Acute (3) Lactic acidosis Current Visit: Yes Status: Acute (4) Pleural effusion Current Visit: Yes Status: Acute - Plan Continue started diuretics, dose Lasix 40 mg x 1 again today Follow potassium level Follow case management for hospice evaluation Status post PRBC, stable Status post thoracentesis, follow-up plan for Pleurx catheter placement Follow case management for hospice discharge planning Status post long-term care placement for patient has been discussed, see severely malnourished/cachectic and weak Family has agreed to go with a [facility] hospice. Discharge Plan: Home Plan to discharge in: In 1 to 2 days 08/07/21 09:24
--- NOTE | 2021-08-07 09:42 | P.DS ---
Admission Date: 07/31/21 Discharge Date: 08/08/21 Disposition: ROUTINE DISCHARGE Discharge Condition: FAIR Reason for Admission: History of Hodgkin's lymphoma with severe anemia Brief History of Present Illness: History of Present Illness: Patient is a 31-year-old female who came to the hospital with severe anemia. Patient has a history of Hodgkin's lymphoma. Patient has not been the most compliant patient with her treatments. 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 However, her Hodgkin's lymphoma is fairly advanced at this stage. She has been getting chemotherapy for 10 years. She no longer wants to get chemotherapy. She will be admitted to the hospital for blood transfusion. Allergies No Known Drug Allergies Allergy (Verified 11/29/14 10:59) Unknown Home Medications: NK [No Home Meds] 07/31/21 - Past Medical/Surgical History Has patient received pneumonia vaccine in the past: No Diabetic: No -: Van lymphoma on chemo -: -: Feet reconstruction -: Lymph node excision -: Port-A-Cath insertion -: Appendectomy Hospital Course: CT abdomen/pelvis IMPRESSION: 1. Interval development of findings compatible with hepatic, splenic, lymphatic, pulmonary and osseous metastases. 2. Diffuse body wall edema. Moderate abdominal and pelvic ascites. 3. Large right and small to moderate left pleural effusions. Right middle and lower lobe consolidation (atelectasis and/or infiltrate). Multifocal left-sided infiltrates. 4. Other findings as above. Electronically signed by: Henrry Mendoza MD 08/06/2021 12:21 AM CDT Hospital course 31-year-old female with past medical history of non-Hodgkin's lymphoma admitted for weakness and shortness of breath. Chest imaging shows evidence of right lobe consolidation consistent with pneumonia. Blood culture grew strep pneumonia. She was started on empirical IV antibiotics with improvement in her shortness of breath. She was also noted with significant fluid overload with anasarca and bilateral pleural effusion as well as ascites. She underwent thoracocentesis with slight improvement in dyspnea. Given persistent symptoms decision for Pleurx catheter placement was obtained. patient had a CT of the abdomen and pelvis done with findings of worsening intra-abdominal or Abscesses. Patient opted for hospice care after discussion with family. She will be discharged home to home hospice. She was started on continue on IV diuretics to help with volume control.Patient had the Pleurx catheter placed and converted to chest tube. There was a mild Pneumothorax but which remain resolved on follow-up x-ray. 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 Right lobe pneumonia Strep pneumonia bacteremia Anemiastatus post PRBC - Problems (Diagnosis) (1) Severe anemia Current Visit: Yes Status: Acute (2) Hodgkins lymphoma Current Visit: Yes Status: Acute (3) Lactic acidosis Current Visit: Yes Status: Acute (4) Pleural effusion Current Visit: Yes Status: Acute Vital Signs/Physical Exam: Temp Pulse Resp BP Pulse Ox 98 F 79 17 116/72 90 L 08/07/21 09:26 08/07/21 09:26 08/07/21 09:26 08/07/21 09:26 08/07/21 09:26 Laboratory Data at Discharge: WBC 13.7 K/uL (4.3-10.9) H D 08/05/21 06:20 Hgb 9.6 g/dL (12.0-15.0) L 08/05/21 06:20 Hct 30.8 % (36.0-45.0) L 08/05/21 06:20 Plt Count 169 K/uL (152-406) 08/05/21 06:20 PT 25.6 SECONDS (9.5-12.5) H 07/31/21 12:20 INR 2.29 07/31/21 12:20 APTT 45.7 SECONDS (24.3-36.9) H 07/31/21 12:20 Sodium 139 mmol/L (136-145) 08/05/21 06:20 Potassium 3.9 mmol/L (3.5-5.1) 08/05/21 06:20 BUN 21 mg/dL (7-18) H 08/05/21 06:20 Creatinine 0.33 mg/dL (0.55-1.3) L 08/05/21 06:20 Glucose 160 mg/dL (74-106) H 08/05/21 06:20 Phosphorus 2.5 mg/dL (2.5-4.9) 08/05/21 06:20 Magnesium 1.9 mg/dL (1.8-2.4) 08/05/21 06:20 Total Bilirubin 2.3 mg/dL (0.2-1.0) H 08/05/21 06:20 AST 15 U/L (15-37) 08/05/21 06:20 ALT 21 U/L (12-78) 08/05/21 06:20 Alkaline Phosphatase 276 U/L (45-117) H 08/05/21 06:20 Home Medications: Albuterol Neb [Proventil 0.083% Neb Soln] 2.5 mg NEB [id number] PRN #60 amp 08/04/21 Benzonatate [Tessalon Perle*] 200 mg PO TID PRN #30 cap 08/04/21 Guaifen W/Codeine Syrup [ROBITUSSIN A-C Syrup*] 10 ml PO BID PRN #150 ml 08/04/21 clonazePAM [Klonopin] 0.5 mg PO TID #60 tablet 08/04/21 levoFLOXacin [Levaquin] 750 mg PO DAILY #14 tab 08/04/21 New Medications: clonazePAM [Klonopin] 0.5 mg PO TID #60 tablet levoFLOXacin [Levaquin] 750 mg PO DAILY #14 tab Albuterol Neb [Proventil 0.083% Neb Soln] 2.5 mg NEB [id number] PRN #60 amp PRN Reason: Shortness Of Breath Guaifen W/Codeine Syrup [ROBITUSSIN A-C Syrup*] 10 ml PO BID PRN #150 ml PRN Reason: Cough Benzonatate [Tessalon Perle*] 200 mg PO TID PRN #30 cap PRN Reason: Cough Physician Discharge Instructions: -DC IV and DC home with hospice care -Follow-up with PCP in 1 to 2 weeks -Please call Dr. Lima at [phone] if any questions regarding hospital stay -Please call nursing station at [phone] if any nursing or medication questions -Return to the emergency room if symptoms worsen Diet: Regular Activity: Fall precautions Followup: NONE,NONE [Primary Care Provider] - Time spent managing pt's care (in minutes): 35
[2021-08-07] MEDS ORDERED: LIDOCAINE 2% MPF 5 ML VIAL ONE (09:43)
[2021-08-07] MEDS ORDERED: FENTANYL CITR 100 MCG/2 ML ONE (09:43)
[2021-08-07] MEDS ORDERED: propofoL 200 MG/20 ML VIAL IV ONE (09:43)
[2021-08-07] MEDS ORDERED: MIDAZOLAM HCL 2 MG/2 ML INJ ONE (09:43)
[2021-08-07] MEDS ORDERED: ONDANSETRON 4 MG/2 ML VIAL ONE (09:43)
[2021-08-07] MEDS ORDERED: BUPIVACAINE 0.5% PF 10 ML VIAL ONE (10:03)
[2021-08-07] MEDS ORDERED: LIDOCAINE 1% MPF 5 ML VIAL IJ ONE (10:27)
--- NOTE | 2021-08-07 10:42 | P.OP ---
Preoperative diagnosis: RIGHT Pleural Effusion Postoperative diagnosis: RIGHT Pleural Effusion Primary procedure: Placement of RIGHT Tunnelled Thoracic PleurX Catheter Anesthesia: IV Sedation + Local Estimated blood loss: <1cc Specimen: none Findings: 1.5 liters immediately - straw colored Complications: None Drain(s): Other (PleruX Catheter) Transferred to: Recovery Room Condition: Good
--- NOTE | 2021-08-07 11:33 | RAD REPORT ---
EXAM DESCRIPTION: RAD - Chest Single View - 08/07/2021 11:07 am CLINICAL HISTORY: RIGHT thoracic cathter placed COMPARISON: Portable 08/05/2021 TECHNIQUE: AP portable chest image was obtained 08/07/2021 11:07 am . FINDINGS: Right-sided PleurX catheter has been placed. Catheter enters approximately seventh interco stal space lateral lower right chest. Catheter is looped with the tip in the lateral right base. A small approximately 10% pneumothorax is evident in the lateral right base where there is also right lower lobe and right middle lobe atelectasis. No pneumothorax changes are seen in the mid or upper r ight lung field. Cardiomediastinal silhouette is stable. Pleural fluid has fully resolved or nearly fully resolved. No measurable pleural fluid collections seen. IMPRESSION: Placement of a right PleurX catheter into the lower right lung field. Pleural fluid has resolved or nearly fully resolved. Approximately 10% pneumothorax is seen in the lateral right lung base with lung base atelectasis pres ent.
[2021-08-07] MEDS: Levofloxacin 750mg IV 750 MG/150 ML BAG IV SCH (14:26)
--- NOTE | 2021-08-07 14:27 | CON ---
Date of Consultation: 08/06/2021 Brief History Of Present Illness: The patient is a 31-year-old female with a history of anemia cause d by severe Hodgkin lymphoma. She presents with worsening shortness of breath and bilateral pleural effusions, right greater than left. As such, I am consulted for placement of a PleurX long-term righ t thoracic catheter. Past Medical History: Significant for Hodgkin lymphoma, currently not on chemo, but has taken rounds of chemo and is due to reinitiate chemotherapy. Past Surgical History: Includes foot reconstruction, , lymph node biopsy, Port-A-Cath inser tion, appendectomy. Home Medications: None. Allergies: NONE. Social History: She does have a smoking history. Denies alcohol or recreational drug use. Review of Systems: Ten-point review of systems other than HPI, she has fatigue and malaise currently. Physical Examination: Vital Signs: At the time of my examination; her blood pressure was 118/62, pulse was 91, respiratory rate 18, temperature 98.5, SpO2 92% on room air. General: She is awake, alert, oriented. Psychiatric: She is appropriate, conversive. HEENT: Normocephalic. Sclerae anicteric. Mucous membranes are moist. Oropharynx clear. Neck: Supple without no JVD. Chest: Normal expansion and excursion. Cardiovascular: Regular rate and rhythm. Pulmonary: Decreased breath sounds bilaterally, right greater than left. Extremities: No clubbing, cyanosis, edema. Skin: Warm and dry. Laboratory Data: Revealed a white blood cell count of 13.7, hemoglobin is 9.6, hematocrit 30.8, plat elet count was 169, neutrophils 94%. Sodium 139, potassium 3.9, chloride 107, carbon dioxide 28, BUN 20, creatinine 0.3, glucose is 160, phosphorus 2.5, total bilirubin 2.3, AST 15, ALT 21, alkaline ph osphatase was 276. Procalcitonin is 3.08. She had imaging performed, which included a CT of the abd omen, chest, and pelvis showed interval development of findings compatible with hepatic, splenic, lym phatic, pulmonary, and osseous metastasis. Diffuse body wall edema, moderate abdominal pelvic ascite s, large right and [id number] left pleural effusions, right middle lobe and lower lobe consoli dation, multifocal left-sided infiltrates. Assessment And Plan: This is a 31-year-old female, who comes in with severe Hodgkin lymphoma exacerb ation with pulmonary effusions, right greater than left. I have explained the risks, benefits, and a lternatives of placement of a right thoracic long-term indwelling PleurX catheter including, but not limited to bleeding, infection, damage to surrounding tissues, need for further operation and procedu res. The patient agreed to proceed as indicated. Thank you for this interesting consult. RADHA/FIDELINA Voice ID: [id number] Report ID: [id number]
--- NOTE | 2021-08-07 15:22 | RAD REPORT ---
EXAM DESCRIPTION: RAD - Chest Single View - 08/07/2021 3:03 pm CLINICAL HISTORY: S/P 4HR CHEST TUBE INSERTION COMPARISON: Chest Single View dated 08/07/2021; Chest Single View dated 08/05/2021; Chest Single View dated 08/04/2021; Chest Single View dated 08/04/2021; Abdomen Pelvis W Contrast dated 08/05/2021 FINDINGS: Lines: Tunneled pleural catheter in the right lung. Port-A-Cath. Lungs: Ill-defined bilateral basilar opacities, right greater than left. These are unchanged. Pleural: Small left effusion. Tunneled pleural catheter in the right lung. The small ex vacuo pneumot horax at the right lung base is less conspicuous. Cardiac: Similar size again figure Bones: No acute fractures. Other: IMPRESSION: Tunneled pleural catheter in place. The right basilar ex vacuo pneumothorax is not as we ll seen. There may have been some reaccumulation or redistribution of pleural fluid.
--- NOTE | 2021-08-07 21:57 | OP ---
Date of Procedure: 08/07/2021 Surgeon: Billy Casillas MD, Preoperative Diagnosis: Right pleural effusion. Postoperative Diagnosis: Right pleural effusion. Procedure Performed: Placement of right tunneled thoracic PleurX catheter. Anesthesia: IV sedation plus local with 1% lidocaine. Estimated Blood Loss: Less than 1 cc. Specimen: None. Findings: 1.5 L immediate return of straw-colored fluid, nonbloody. Complications: None. Implants: PleurX catheter. Disposition: Patient transferred to recovery room in good condition. Procedure In Detail: After informed consent was obtained, the patient was brought to the operating r oom, prepped and draped in the usual sterile fashion after adequate anesthesia achieved. I anestheti zed the area of the right fourth to fifth intercostal space, the anterior axillary line with 1% lidoc jesse. I made a small chikis incision in the area and inserted the finder needle into the thoracic spac e. Immediately, straw-colored fluid was encountered. A wire was advanced through the needle and the needle was removed at this point after the sheath was removed. The wire remained in place. I then found a spot on the inferior aspect of the chest wall and anesthetized this area and the entire tract and then made a small chikis incision at this. Using a tunneling device, I brought the catheter throu gh the insertion site after making a small counter incision. At this point, the catheter remained in place. I then performed sequential dilatation using Seldinger technique over the wire. I then plac ed the catheter into the chest. A large amount of straw-colored fluid was immediately emanating. Th e catheter was placed and functional at the end of the procedure. I then cleansed the area with ster ile cleanser and closed the insertion site with a single interrupted 2-0 nylon suture and a sterile d ressing placed over top. The patient tolerated the procedure well without evidence of complication a nd transferred to PACU in good condition. All counts were correct at the end of the case TK/MODL Voice ID: [id number] Report ID: [id number]
[2021-08-08] MEDS: METHYLPREDNISOLONE 125 MG INJ IV SCH ×3 (00:57→12:31)
[2021-08-08] MEDS: MORPHINE 2 MG/ML SYR IV PRN ×3 (00:58→12:31)
[2021-08-08 05:11] LABS: LD, PLEURAL FLUID 1636 U/L; TOTAL PROTEIN, PLEURAL FLUID <3.0 g/dL; TRIGLYCERIDE, PLEURAL FLUID 53 mg/dL
[2021-08-08 06:24] LABS: Absolute Lymphocytes (CBC) 0.4 K/uL (0.7-4.9); Hematocrit 33.8 % (36.0-45.0); Lymphocytes % 3.5 % (15.3-44.8); MPV 8.2 fL (7.6-11.3); RBC Red Blood Cell Count 3.54 M/uL (3.86-4.86)
[2021-08-08 06:27] LABS: ALT/SGPT 26 U/L (12-78); AST/SGOT 18 U/L (15-37); Albumin 1.8 g/dL (3.4-5.0); Alkaline Phosphatase 215 U/L (45-117); BUN Blood Urea Nitrogen 29 mg/dL (7-18); Bicarbonate 31 mmol/L (21-32); Bilirubin Total 1.3 mg/dL (0.2-1.0); Glucose Level 213 mg/dL (74-106); Potassium 4.3 mmol/L (3.5-5.1); Protein, Total 4.8 g/dL (6.4-8.2); Sodium Level 140 mmol/L (136-145)
[2021-08-08 08:51] VITALS: O2SAT 88
[2021-08-08] MEDS: ENSURE ENLIVE 237 ML CAN PO SCH ×2 (09:00→14:00)
[2021-08-08] MEDS: FUROSEMIDE 40 MG TABLET PO SCH (09:49)
[2021-08-08] MEDS: VANCOMYCIN 1.25 GM in NA CHLORIDE 0.9% 250 ML IVPB SCH (09:50)
[2021-08-08] MEDS: MIDODRINE HCL 5 MG TABLET PO SCH (09:50)
[2021-08-08] MEDS: clonazePAM 0.5 MG TAB PO SCH ×2 (09:50→15:02)
[2021-08-08] MEDS: PANTOPRAZOLE 40 MG INJ IVP SCH (09:51)
[2021-08-08] MEDS: Levofloxacin 750mg IV 750 MG/150 ML BAG IV SCH (12:31)
[2021-08-08 12:36] VITALS: BP 125/78; TEMP 98.3
--- NOTE | 2021-08-08 12:47 | P.PN ---
Subjective Date of Service: 08/08/21 Chief Complaint: History of Hodgkin's lymphoma with severe anemia Subjective: Improving Physical Examination - Vital Signs Temperature: 98.3 F Blood Pressure: 125/78 Pulse: 78 Respirations: 16 Pulse Ox (%): 93 - Physical Exam General: Alert, In no apparent distress, Cooperative Respiratory: Clear to auscultation bilaterally, Other (RIGHT thoracostomy tube in place, functioning currently, was clamped prior to my arrival) - Studies Medications List Reviewed: Yes Assessment And Plan - Current Problems (Diagnosis) (1) Pleural effusion Current Visit: Yes Status: Acute Plan: - Pleur-X catheter in place - continue plan per primary team / hospice Physician Review: Patient Assessed, Agree with Above Assessment and Plan
[2021-08-08 13:36] LABS: Anisocytosis 3+; Blood Morphology Comment NOTED (NOT SEEN); Hypochromasia 1+; Platelet Estimate ADEQ; White Blood Cell Scan OK (OK)
[2021-08-08] MEDS ORDERED: HEPARIN 500 UNIT/5 ML SYR IV PRN (14:42)
== END 2021-08-08 16:19 | disposition hospice, home (50) | DRG 871 ==
LOC: ER 11:16 → ERHOLD 14:53 → 2ND 16:35
PROVIDERS: ADMIT Hospitalist; ATTEND Hospitalist
PROC: 30233N1 Transfusion of Nonautologous Red Blood Cells into Peripheral Vein, Percutaneous Approach (ICD-10-PCS; 2021-08-01)
PROC: 0W993ZX Drainage of Right Pleural Cavity, Percutaneous Approach, Diagnostic (ICD-10-PCS; principal; 2021-08-04)
PROC: 0W9930Z Drainage of Right Pleural Cavity with Drainage Device, Percutaneous Approach (ICD-10-PCS; 2021-08-07)
DX: A40.3 Sepsis due to Streptococcus pneumoniae (principal); J18.9 Pneumonia, unspecified organism; R65.20 Severe sepsis without septic shock; J96.00 Acute respiratory failure, unspecified whether with hypoxia or hypercapnia; C81.98 Hodgkin lymphoma, unspecified, lymph nodes of multiple sites; J91.0 Malignant pleural effusion; C81.93 Hodgkin lymphoma, unspecified, intra-abdominal lymph nodes; R18.8 Other ascites; J93.9 Pneumothorax, unspecified; R64 Cachexia; Z68.1 Body mass index [BMI] 19.9 or less, adult; E87.2 Acidosis; Z94.84 Stem cells transplant status; D64.9 Anemia, unspecified; Z20.822 Contact with and (suspected) exposure to COVID-19
CPT/HCPCS: 36415; 36430; 71045; 71275; 74177; 76604; 80048; 80053; 80202; 82042; 82150; 82565; 82945; 83605; 83615; 83735; 83880; 84100; 84145; 84157; 84478; 85025; 85610; 85730; 86850; 86870; 86900; 86901; 86922; 87040; 87070; 87077; 87086; 87088; 87186; 87205; 88108; 88305; 89050; 93005; 94003; 94660; 96374; 96375; 99285; C9113; J0456; J1642; J1940; J2250; J2270; J2405; J2704; J2930; J3010; J3370; J7030; J7050; J7120; P9016; P9047; Q9967; U0003

== ENCOUNTER 2021-08-09 18:40 | Observation (INO) | payer OTHER ==
--- OUTSIDE RECORDS SUMMARY | 2021-08-09 18:42 | XMS REPORT | Continuity of Care Document ---
:1990 Author Organization [facility] t Address [address] [place] [address] Care Team Providers Name Role Phone KAREN [...] Facility Department ID 2019-09-21 2019-09-21 Outpatient PINGALI, [facility] [id number] [place] 00:00:00 00:00:00 GABE 471 [address] i 2019-09-21 2019-09-21 Outpatient PINGALI, [facility] [id number] [place] 00:00:00 00:00:00 GABE 665 Method i 2019-09-21 2019-09-21 Outpatient PINGALI, [facility] [id number] [place] 00:00:00 00:00:00 GABE 969 Method i 2019-09-02 2019-09-02 Outpatient PINGALI, [facility] [id number] [place] 00:00:00 00:00:00 GABE 870 Method i 2019-09-02 2019-09-02 Outpatient PINGALI, [facility] [id number] [place] 00:00:00 00:00:00 GABE 234 Method i 2019-04-01 2019-04-02 Outpatient [facility] [id number] [place] 00:00:00 00:00:00 Johnnie WATSON Method i [address] 2019-02-10 2019-02-10 Outpatient PINGALI, [facility] [id number] [place] 00:00:00 00:00:00 GABE [address] Results This patient has no known results.
--- NOTE | 2021-08-09 19:05 | ER ---
Nurse's Notes [facility] Name: Olga Lujan Age: 31 yrs Sex: Female : 1990 Arrival Date: 08/09/2021 Time: 18:41 Bed 5 Private MD: Diagnosis: Malignant ascites Presentation: 08/09 18:44 Chief complaint: Patient states: abdominal distension- hx of liver cancer. Coronavirus cespedes screen: Vaccine status: Patient reports being unvaccinated. Ebola Screen: Patient denies travel to an Ebola-affected area in the 21 days before illness onset. Initial Sepsis Screen: Does the patient meet any 2 criteria? RR > 20 per min. HR > 90 bpm. Does the patient have a suspected source of infection? No. Patient's initial sepsis screen is negative. Risk Assessment: Do you want to hurt yourself or someone else? Patient reports no desire to harm self or others. Onset of symptoms was August 09, 2021. 18:44 Acuity: DAMASO 3 cespedes 18:44 Method Of Arrival: EMS: [facility] cespedes Triage Assessment: 18:46 General: Appears in no apparent distress. Behavior is calm, cooperative. Pain: Denies cespedes pain. GI: Abdomen is distended, noted to have ascites. Historical: - Allergies: 18:46 NKDA; cespedes - PMHx: 18:46 Hodgkin Lymphoma; LIVER CA; cespedes - PSHx: 18:46 Appendectomy; section; Lymph nodes removed; cespedes - Immunization history:: Adult Immunizations up to date. - Social history:: Smoking status: Patient denies any tobacco usage or history of. Screenin:48 Abuse screen: Denies threats or abuse. Denies injuries from another. Nutritional cespedes screening: No deficits noted. Tuberculosis screening: No symptoms or risk factors identified. Fall Risk None identified. Assessment: 19:00 General: Appears in no apparent distress. comfortable, Behavior is calm, cooperative, vc1 appropriate for age. Pain:. Neuro: Level of Consciousness is awake, alert, obeys commands, Oriented to person, place, time, situation, Appropriate for age. Cardiovascular: No deficits noted. Respiratory: No deficits noted. GI: Abdomen is round distended, noted to have ascites. 20:00 Reassessment: No changes from previously documented assessment. Patient and/or family vc1 updated on plan of care and expected duration. Pain level reassessed. 21:00 Reassessment: No changes from previously documented assessment. Patient and/or family vc1 updated on plan of care and expected duration. Pain level reassessed. Patient is alert, oriented x 3, equal unlabored respirations, skin warm/dry/pink. 22:00 Reassessment: No changes from previously documented assessment. Patient and/or family vc1 updated on plan of care and expected duration. Pain level reassessed. Patient is alert, oriented x 3, equal unlabored respirations, skin warm/dry/pink. Vital Signs: 18:44 BP 119 / 86; Pulse 114; Resp 20; Temp 98.2(T); Pulse Ox 94% on R/A; Weight 52.16 kg; cespedes Height 5 ft. 8 in. (172.72 cm); 19:00 BP 114 / 84; Pulse 109; Resp 20; Pulse Ox 95% on R/A; vc1 20:00 BP 110 / 81; Pulse 108; Resp 18; Pulse Ox 93% on R/A; vc1 21:00 BP 112 / 89; Pulse 116; Resp 19; Pulse Ox 93% on R/A; vc1 18:44 Body Mass Index 17.49 (52.16 kg, 172.72 cm) cespedes ED Course: 18:41 Patient arrived in ED. jr8 18:44 Samantha Grayson, RN is Primary Nurse. cespedes 18:46 Triage completed. cespedes 18:46 Arm band placed on. cespedes 18:48 Patient has correct armband on for positive identification. Bed in low position. cespedes 18:48 No provider procedures requiring assistance completed. cespedes 18:50 Jean[facility]ccray [facility] 8 18:50 Elyse Richardson MD is Attending Physician. jr8 19:03 Thomas Sanderson MD is Hospitalizing Provider. jr8 22:41 Patient admitted, IV remains in place. vc1 Administered Medications: 19:56 Drug: KLONopin (clonazePAM) 0.5 mg Route: PO; ke1 22:04 Follow up: Response: No adverse reaction vc1 19:57 Drug: morphine 2 mg Route: IVP; Site: Port-a-cath; ke1 22:04 Follow up: Response: No adverse reaction; Marked relief of symptoms vc1 Outcome: 19:03 Decision to Hospitalize by Provider. jr8 22:41 Admitted to Med/surg accompanied by tech, family with patient, via stretcher, room 225. vc1 22:41 Condition: stable 22:41 Instructed on the need for admit. 22:41 Patient left the ED. vc1 Signatures: Jenaro Mccray PA PA jrSamantha Taylor RN RN ha Calcote, Vanessa, RN RN vc1 Linda Guerra RN RN ke1
--- NOTE | 2021-08-09 19:05 | EDPHYS ---
Physician Documentation [facility] Name: Olga Lujan Age: 31 yrs Sex: Female : 1990 Arrival Date: 08/09/2021 Time: 18:41 Bed 5 Private MD: ED Physician Elyse Richardson HPI: 08/09 18:56 This 31 yrs old Female presents to ER via EMS with complaints of Abdominal Swelling. jr8 18:56 Patient with lymphoma stage 4 on hospice. Was referred to hospital today from Dr. roberto Casillas for admission for abdominocentesis with placement of permanent cath. No current complaints at this time . Severity of symptoms: At their worst the symptoms were moderate. The patient has been recently seen by a physician:. Historical: - Allergies: 18:46 NKDA; cespedes - PMHx: 18:46 Hodgkin Lymphoma; LIVER CA; cespedes - PSHx: 18:46 Appendectomy; section; Lymph nodes removed; cespedes - Immunization history:: Adult Immunizations up to date. - Social history:: Smoking status: Patient denies any tobacco usage or history of. ROS: 18:56 Eyes: Negative for injury, pain, redness, and discharge, ENT: Negative for injury, jr8 pain, and discharge, Neck: Negative for injury, pain, and swelling, Cardiovascular: Negative for chest pain, palpitations, and edema, Respiratory: Negative for shortness of breath, cough, wheezing, and pleuritic chest pain, Back: Negative for injury and pain, MS/Extremity: Negative for injury and deformity, Skin: Negative for injury, rash, and discoloration, Neuro: Negative for headache, weakness, numbness, tingling, and seizure. 18:56 Abdomen/GI: Positive for abdominal distension, Negative for abdominal pain, nausea, vomiting, and diarrhea. Exam: 18:56 Cardiovascular: Tachycardic with a normal S1 and S2. No gallops, murmurs, or rubs. jr8 Normal PMI, no JVD. No pulse deficits. Respiratory: Lungs have equal breath sounds bilaterally, clear to auscultation and percussion. No rales, rhonchi or wheezes noted. No increased work of breathing, no retractions or nasal flaring. 18:56 Skin: Warm, dry with normal turgor. Normal color with no rashes, no lesions, and no evidence of cellulitis. MS/ Extremity: Pulses equal, no cyanosis. Neurovascular intact. Full, normal range of motion. Neuro: Awake and alert, GCS 15, oriented to person, place, time, and situation. Motor strength 5/5 in all extremities. Sensory grossly intact. 18:56 Constitutional: The patient appears alert, awake, non-toxic. 18:56 Abdomen/GI: Inspection: distension, that is moderate, Bowel sounds: active, all quadrants, Palpation: soft, in all quadrants, nontender, in all quadrants. Vital Signs: 18:44 BP 119 / 86; Pulse 114; Resp 20; Temp 98.2(T); Pulse Ox 94% on R/A; Weight 52.16 kg; cespedes Height 5 ft. 8 in. (172.72 cm); 19:00 BP 114 / 84; Pulse 109; Resp 20; Pulse Ox 95% on R/A; vc1 20:00 BP 110 / 81; Pulse 108; Resp 18; Pulse Ox 93% on R/A; vc1 21:00 BP 112 / 89; Pulse 116; Resp 19; Pulse Ox 93% on R/A; vc1 18:44 Body Mass Index 17.49 (52.16 kg, 172.72 cm) cespedes MDM: 18:50 Patient medically screened. [facility] 18:56 Data reviewed: vital signs, nurses notes, lab test result(s). Data interpreted: Pulse jr8 oximetry: on room air is 94 %. Interpretation: acceptable. Counseling: I had a detailed discussion with the patient and/or guardian regarding: the historical points, exam findings, and any diagnostic results supporting the discharge/admit diagnosis, lab results, the need for further work-up and treatment in the hospital. 08/09 18:50 Order name: CBC with Diff; Complete Time: 21:36 8 08/09 18:50 Order name: CMP; Complete Time: 19:45 [facility] 08/09 18:56 Order name: COVID-19/FLU A+B (Document "Date of Onset" if Symptomatic); Complete Time: kj1 20:47 08/09 21:28 Order name: CBC Smear Scan; Complete Time: 21:36 EDMS 08/09 18:50 Order name: IV Saline Lock; Complete Time: 19:05 8 08/09 18:50 Order name: Labs collected and sent; Complete Time: 19:05 jr8 Administered Medications: 19:56 Drug: KLONopin (clonazePAM) 0.5 mg Route: PO; ke1 22:04 Follow up: Response: No adverse reaction vc1 19:57 Drug: morphine 2 mg Route: IVP; Site: Port-a-cath; ke1 22:04 Follow up: Response: No adverse reaction; Marked relief of symptoms vc1 Disposition Summary: 08/09/21 19:03 Hospitalization Ordered Hospitalization Status: Observation jr8 Provider: Thomas Sanderson 8 Location: Telemetry/MedSurg (observation) jr8 Condition: Stable jr8 Problem: new jr8 Symptoms: are unchanged jr8 Bed/Room Type: Standard [facility] Room Assignment: 225(08/09/21 21:38) Diagnosis - Malignant ascites jr8 Forms: - Medication Reconciliation Form jr8 - SBAR form jr8 Addendum: 08/25/2021 18:08 Co-signature as Attending Physician, Elyse Richardson MD. m a2 Signatures: Dispatcher [employer] EDMS Jenaro Mccray PA PA jr8 Zion Willson, TRACK PATROL-C TRACK PATROL-Cla1 Mirtha Mason, MIKAYLA RN Elyse Richardson MD MD ma2 Samantha Grayson RN RN ha Ebrottie, Kouassi, RN RN ke1 Marlena Guy RN vc1 Corrections: (The following items were deleted from the chart) 08/09 21:38 19:03 jr8 cg
[2021-08-09 19:16] LABS: Absolute Lymphocytes (CBC) 0.7 K/uL (0.7-4.9); Hematocrit 36.5 % (36.0-45.0); Lymphocytes % 4.5 % (15.3-44.8); MPV 7.7 fL (7.6-11.3); RBC Red Blood Cell Count 3.86 M/uL (3.86-4.86)
[2021-08-09 19:44] LABS: ALT/SGPT 30 U/L (12-78); AST/SGOT 21 U/L (15-37); Albumin 1.8 g/dL (3.4-5.0); Alkaline Phosphatase 195 U/L (45-117); BUN Blood Urea Nitrogen 27 mg/dL (7-18); Bicarbonate 31 mmol/L (21-32); Bilirubin Total 1.2 mg/dL (0.2-1.0); Glomerular Filtration Rate > 90 mL/min (=/>90); Glucose Level 105 mg/dL (74-106); Potassium 3.8 mmol/L (3.5-5.1); Protein, Total 4.2 g/dL (6.4-8.2); Sodium Level 139 mmol/L (136-145)
--- NOTE | 2021-08-09 19:50 | P.HP ---
Certification for Inpatient Patient admitted to: Observation With expected LOS: <2 Midnights Patient will require the following post-hospital care: None Practitioner: I am a practitioner with admitting privileges, knowledge of patient current condition, hospital course, and medical plan of care. Services: Services provided to patient in accordance with Admission requirements found in Title 42 Section 412.3 of the Code of Federal Regulations Patient History Date of Service: 08/09/21 Reason for admission: Malignant Ascites History of Present Illness: 31-year-old female with history of stage IV Hodgkin's lymphoma who was recently treated the hospital for severe anemia and had a Pleurx catheter placed for treatment of pleural effusion went home and began having significant abdominal swelling. Patient noted to have significant amount of ascites Case was discussed with general surgery who plans to inset pleurex catheter for palliative relief of ascites Allergies No Known Drug Allergies Allergy (Verified 11/29/14 10:59) Unknown Home Medications: Albuterol Neb [Proventil 0.083% Neb Soln] 2.5 mg NEB [id number] PRN #60 amp 08/04/21 Benzonatate [Tessalon Perle*] 200 mg PO TID PRN #30 cap 08/04/21 Guaifen W/Codeine Syrup [ROBITUSSIN A-C Syrup*] 10 ml PO BID PRN #150 ml 08/04/21 clonazePAM [Klonopin] 0.5 mg PO TID #60 tablet 08/04/21 levoFLOXacin [Levaquin] 750 mg PO DAILY #14 tab 08/04/21 - Past Medical/Surgical History Diabetic: No -: Van lymphoma on chemo -: -: Feet reconstruction -: Lymph node excision -: Port-A-Cath insertion -: Appendectomy Psychosocial/ Personal History: Pt lives at home with family - Family History Father Notes: no medical condition Mother -: Cancer Notes: bone ca - Social History Smoking Status: Never smoker Alcohol use: No CD- Drugs: No Caffeine use: No Place of Residence: Home Review of Systems 10-point ROS is otherwise unremarkable Gastrointestinal: Abdominal Pain, Distention, Other Physical Examination - Physical Exam General: Alert, In no apparent distress, Oriented x3 HEENT: Atraumatic, PERRLA, Mucous membr. moist/pink, EOMI, Sclerae nonicteric Neck: Supple, 2+ carotid pulse no bruit, No LAD, Without JVD or thyroid abnormality Respiratory: Clear to auscultation bilaterally, Normal air movement Cardiovascular: Regular rate/rhythm, Normal S1 S2 Gastrointestinal: Normal bowel sounds, Ascites Musculoskeletal: No tenderness Integumentary: No rashes Neurological: Normal speech, Normal strength at 5/5 x4 extr, Normal tone, Normal affect - Studies Laboratory Data (last 24 hrs) 08/09/21 18:55: Sodium 139, Potassium 3.8, BUN 27 H, Creatinine 0.35 L, Glucose 105, Total Bilirubin 1.2 H, AST 21, ALT 30, Alkaline Phosphatase 195 H 08/09/21 18:55: WBC 14.8 H D, Hgb 11.7 L, Hct 36.5, Plt Count 260 Assessment and Plan - Plan Assessment: Stage IV Hodgkin lymphoma Malignant pleural effusion Malignant ascites Plan: Stage IV Hodgkin lymphoma: Patient no longer on chemotherapy, provide medication as needed for pain/anxiety admit overnight for placement of Pleurx catheter for relief of ascites. General surgery consulted. Malignant pleural effusion: Patient with Pleurx catheter in place. Malignant ascites: Plan for surgery to place Pleurx catheter into abdominal cavity for relief of malignant ascites in the morning. DVT PPX:SCD Code status:Full Discharge Plan: Home Plan to discharge in: 24 Hours - Advance Directives Does patient have a Living Will: No Does patient have a Durable POA for Healthcare: No - Code Status/Comfort Care Code Status Assessed: Yes (Full code) Critical Care: No Time Spent Managing Pts Care (In Minutes): 55
[2021-08-09] MEDS ORDERED: clonazePAM 0.5 MG TAB ONE (19:53)
[2021-08-09] MEDS ORDERED: MORPHINE 2 MG/ML SYR ONE (19:53)
[2021-08-09 20:43] LABS: SARS-COV-2 RT PCR NEGATIVE (NEGATIVE)
[2021-08-09 21:27] LABS: Anisocytosis 3+; Blood Morphology Comment NOTED (NOT SEEN); Platelet Estimate ADEQ; White Blood Cell Scan OK (OK)
[2021-08-09 22:57] VITALS: BMI 17.4
[2021-08-09] MEDS ORDERED: ONDANSETRON 4 MG/2 ML VIAL IV PRN (23:07)
[2021-08-09] MEDS ORDERED: MORPHINE 2 MG/ML SYR IV PRN (23:07)
[2021-08-09] MEDS ORDERED: BENZONATATE 100 MG CAP PO PRN (23:07)
[2021-08-09] MEDS ORDERED: clonazePAM 0.5 MG TAB PO PRN (23:07)
[2021-08-09 23:37] VITALS: O2SAT 93
[2021-08-10 00:20] LABS: Urine Appearance Clear (Clear); Urine Bilirubin Negative (Negative); Urine Blood Negative (Negative); Urine Color Yellow (Yellow); Urine Glucose Negative (Negative); Urine Protein Negative (Negative); Urine Specific Gravity 1.025 (1.005-1.030); Urine Urobilinogen >=8.0 mg/dL (0.2-1.0)
[2021-08-10 00:21] LABS: Urine Microscopic Reflex NO UMIC
[2021-08-10 04:22] LABS: Absolute Lymphocytes (CBC) 0.8 K/uL (0.7-4.9); Hematocrit 35.7 % (36.0-45.0); Lymphocytes % 3.9 % (15.3-44.8); MPV 7.5 fL (7.6-11.3); RBC Red Blood Cell Count 3.76 M/uL (3.86-4.86)
[2021-08-10 04:34] LABS: ALT/SGPT 27 U/L (12-78); AST/SGOT 19 U/L (15-37); Albumin 1.8 g/dL (3.4-5.0); Alkaline Phosphatase 190 U/L (45-117); BUN Blood Urea Nitrogen 25 mg/dL (7-18); Bicarbonate 32 mmol/L (21-32); Bilirubin Total 1.4 mg/dL (0.2-1.0); Glomerular Filtration Rate > 90 mL/min (=/>90); Glucose Level 72 mg/dL (74-106); Potassium 4.1 mmol/L (3.5-5.1); Protein, Total 4.2 g/dL (6.4-8.2); Sodium Level 137 mmol/L (136-145)
[2021-08-10] MEDS ORDERED: MORPHINE 2 MG/ML SYR IV PRN (05:35)
[2021-08-10] MEDS ORDERED: PANTOPRAZOLE 40MG TABLET PO SCH (06:30)
[2021-08-10] MEDS ORDERED: LIDOCAINE 1% 20 ML MDV ONE (07:46)
[2021-08-10] MEDS: MORPHINE 2 MG/ML SYR IV PRN ×3 (11:12→15:14)
[2021-08-10 12:33] VITALS: BP 115/68; TEMP 97.2
[2021-08-10] MEDS ORDERED: HEPARIN 500 UNIT/5 ML SYR IV PRN (16:11)
--- NOTE | 2021-08-10 21:13 | P.DS ---
Admission Date: 08/09/21 Discharge Date: 08/10/21 Disposition: HOSPICE-HOME Discharge Condition: CRITICAL Reason for Admission: Malignant Ascites Consultations: General Surgery - Dr. Casillas Procedures: Problem List Stage IV Hodgkin lymphoma with pain Malignant pleural effusion Malignant ascites Brief History of Present Illness: 31yo F, PMH: stage IV Hodgkin's lymphoma who was recently treated the hospital for severe anemia and had a Pleurx catheter placed for treatment of pleural effusion went home and began having significant abdominal swelling. Patient noted to have significant amount of ascites Case was discussed with general surgery who plans to insert pleurex catheter for palliative relief of ascites. Hospital Course: General surgery placed catheter at bedside without complications. 1L ascitic fluid was removed which provided relief for the patient. Patient and family were instructed on use of catheter by Dr. Casillas. She reported feeling better and ready for discharge home. Patient discharged home on hospice. Vital Signs/Physical Exam: Temp Pulse Resp BP Pulse Ox 97.2 F 121 H 20 115/68 91 08/10/21 12:00 08/10/21 12:00 08/10/21 12:00 08/10/21 12:00 08/10/21 12:00 General: Alert, Other (intermittently uncomfortable appearing ) HEENT: Sclerae nonicteric Respiratory: Diminished (at bases bilaterally), Other (nonlabored respirations on room air) Gastrointestinal: Ascites, Tenderness (generalized) Neurological: Normal speech, Normal affect Laboratory Data at Discharge: WBC 19.7 K/uL (4.3-10.9) H D 08/10/21 03:59 Hgb 11.5 g/dL (12.0-15.0) L 08/10/21 03:59 Hct 35.7 % (36.0-45.0) L 08/10/21 03:59 Plt Count 240 K/uL (152-406) 08/10/21 03:59 Sodium 137 mmol/L (136-145) 08/10/21 03:59 Potassium 4.1 mmol/L (3.5-5.1) 08/10/21 03:59 BUN 25 mg/dL (7-18) H 08/10/21 03:59 Creatinine 0.26 mg/dL (0.55-1.3) L 08/10/21 03:59 Glucose 72 mg/dL (74-106) L 08/10/21 03:59 Total Bilirubin 1.4 mg/dL (0.2-1.0) H 08/10/21 03:59 AST 19 U/L (15-37) 08/10/21 03:59 ALT 27 U/L (12-78) 08/10/21 03:59 Alkaline Phosphatase 190 U/L (45-117) H 08/10/21 03:59 Home Medications: clonazePAM [Klonopin] 0.5 mg PO TID #60 tablet 08/04/21 levoFLOXacin [Levaquin] 750 mg PO DAILY #14 tab 08/04/21 Morphine Oral Syrup [Morphine Oral Syrup*] 0.25 ml PO Q1H 08/09/21 Time spent managing pt's care (in minutes): 45
--- NOTE | 2021-09-12 07:51 | P.OP ---
Preoperative diagnosis: Stage IV Lymphoma with Ascites Postoperative diagnosis: Stage IV Lymphoma with Ascites Primary procedure: Placement of Abdominal Pleur-X catheter in LLQ Secondary procedure: Ultrasound guidance used Anesthesia: 1% lidocaine Estimated blood loss: <1cc Specimen: none Findings: straw colored fluid Complications: None Drain(s): Other (Abdominal Tunnelled PleurX catheter) Transferred to: Other (Room) Condition: Good
--- NOTE | 2021-09-12 09:26 | CON ---
Date of Consultation: 08/10/2021 Brief History Of Present Illness: The patient is a 31-year-old female known to me from pre vious admission who has a history of stage IV Hodgkin lymphoma treated with chemotherapy, who had sev ere anemia and pulmonary effusion and abdominal ascites. She had a PleurX catheter placed for her pl eural effusion and had significant improvement of her breathing and as such, went home with a PleurX catheter functional. However, she came back to the hospital with significant abdominal swelling and ascites and requesting placement of a PleurX catheter for palliative purposes in her abdomen. She st ates that she had abdominal pain and significant worsening of her ascites since being discharged from the hospital. She has never had a tap before of her peritoneum that she can recall. She has signif icant improvement still of her symptoms with respect to breathing, but has pain, tightness, and diffi culty lying down due to the significant amount of abdominal fluid she has accumulated. Past Medical History: Significant for Hodgkin lymphoma, not on chemotherapy. She has taken multiple rounds of chemotherapy. Past Surgical History: Includes foot reconstruction, , lymph node biopsy, Port-A-Cath inser tion, appendectomy. Allergies: NONE. Home Medications: None. Social History: She does have a smoking history. Denies alcohol or recreational drug use. Review of Systems: A 10-point review of systems, she still has fatigue and malaise. Otherwise, no complaints. Physical Examination: General: She is awake, alert, oriented. Psychiatric: She is appropriate, conversive. She appears thin and frail and cachectic. Vital Signs: Blood pressure 115/68, respiratory rate 20, pulse is 121, temperature was 97.2, O2 satu rations were 91% on room air. Chest: Normal expansion with excursion. Pulmonary: Clear to auscultation bilaterally. Cardiovascular: Tachycardic, but otherwise regular rhythm. There is a PleurX catheter in the right chest, which appears functional. Abdomen: Has tense ascites with significant fluid. I performed an ultrasound examination of her abd omen and found an area of the left lower abdomen to be appropriate for placement of the PleurX cathet er. Extremities: No clubbing, cyanosis, edema. Skin: Otherwise warm and dry. Laboratory Exam: Reveals white blood count 19.7, hemoglobin 7.5, hematocrit of 35.7, platelet count was 240, neutrophils were 90%. Her sodium 137, potassium 4.1, chloride 102, carbon dioxide 32, BUN 2 5, creatinine 0.2, glucose is 72. Assessment/plan: This is a 31-year-old female who comes in with signs and symptoms of stage IV Hodgk in lymphoma with tense ascites. 1.Continue medical management. 2.I have explained the risks, benefits, and alternatives of placement of an abdominal long-term Pleu rX catheter for drainage for palliative/symptomatic improvement including but not limited to bleeding , infection, damage to surrounding tissues, injury, intestines, need for further operation procedure. The patient agrees to proceed as indicated. RADHA/FIDELINA Voice ID: [id number] Report ID: [id number]
--- NOTE | 2021-09-12 09:41 | OP ---
Date of Procedure: 08/10/2021 Surgeon: Billy Casillas MD, Preoperative Diagnosis: Stage IV lymphoma with tense ascites. Postoperative Diagnosis: Stage IV lymphoma with tense ascites. Procedure Performed: An ultrasound guided placement of an abdominal left lower quadrant PleurX tunne led abdominal catheter. Anesthesia: Lidocaine 1% utilized. Estimated Blood Loss: Less than 20 cc. Specimen: None. Findings: Straw-colored fluid returned. Complication: None. Implants: An abdominal tunneled PleurX catheter. Condition: The patient remained in the room in good condition throughout the procedure. Procedure In Detail: After informed consent was obtained, the patient was prepped and draped in the usual sterile fashion after adequate anesthesia achieved. We performed ultrasound of the left lower quadrant and found an area of safety away from intestines and other structures to allow for insertion of a guide needle into the abdominal compartment. Straw-colored fluid was returned. A wire was adv anced at this point using Seldinger technique. I removed the needle and made a small chikis incision a fter the wire was placed. I then performed sequential dilatation and placed the wire at the insertio n site. I then found a tunneling spot approximately 4 cm away from the insertion site. I anesthetiz ed the tract and made a small chikis incision at the insertion site. I brought the PleurX catheter thr ough this tunneling tract putting the cuff in the midportion of the tract. I then introduced the int roducer sheath and placed the catheter into the abdominal compartment without incident or complicatio n and then placed the catheter and removed the introducer sheath. At this point, I closed the insert ion site using an interrupted suture after irrigating the area with sterile saline and a sterile dres sing placed over top. The catheter was functional at the end of the procedure. The patient tolerate d the procedure well without any complication and remained in the hospital bed on the floor room in g ood condition throughout the procedure. All counts were correct at the end of the case. TK/MODL Voice ID: [id number] Report ID: [id number]
== END 2021-08-10 16:25 | disposition hospice, home (50) ==
LOC: ER 18:40 → ERHOLD 19:35 → 2ND 22:21
PROVIDERS: ADMIT Hospitalist; ATTEND Hospitalist
PROC: 0W9G30Z Drainage of Peritoneal Cavity with Drainage Device, Percutaneous Approach (ICD-10-PCS; principal; 2021-08-10)
DX: C81.90 Hodgkin lymphoma, unspecified, unspecified site (principal); R18.0 Malignant ascites; J91.0 Malignant pleural effusion; R64 Cachexia; Z68.1 Body mass index [BMI] 19.9 or less, adult; Z20.822 Contact with and (suspected) exposure to COVID-19; Z87.891 Personal history of nicotine dependence; Z80.8 Family history of malignant neoplasm of other organs or systems
CPT/HCPCS: 32550; 75989; 85025 ×2; 36415; 81003; 80053 ×2; 0240U; 96374; 99285; J2270 ×5; J1642; G0378 ×2

== ENCOUNTER 2021-09-12 20:50 | Emergency (ER) | payer OTHER ==
--- OUTSIDE RECORDS SUMMARY | 2021-09-12 20:53 | XMS REPORT | Continuity of Care Document ---
:1990 Author Organization [facility] t Address [facility] access [address] [place] [address] Care Team Providers Name Role Phone SARAH Attending Clinician Unavailable KAREN Attending Clinician Unavailable JERE WATSON Attending [...] Date/Time Type Type Clinicians Facility Department ID 2021-09-12 2021-09-12 Emergency [facility] [id number] 00:00:00 00:00:00 SADIQ [address] 2019-09-21 2019-09-21 Outpatient PINGALI, [facility] [id number] [place] 00:00:00 00:00:00 GABE [address] 2019-09-21 2019-09-21 Outpatient PINGALI, [facility] [id number] [place] 00:00:00 00:00:00 GABE 665 [address] 2019-09-21 2019-09-21 Outpatient PINGALI, [facility] [id number] [place] 00:00:00 00:00:00 GABE [address] 2019-09-02 2019-09-02 Outpatient PINGALI, [facility] [id number] [place] 00:00:00 00:00:00 GABE [address] 2019-09-02 2019-09-02 Outpatient PINGALI, [facility] [id number] [place] 00:00:00 00:00:00 GABE [address] 2019-04-01 2019-04-02 [facility] [id number] [place] 00:00:00 00:00:00 WALTER, [address] ESTUARD[address] franco 2019-02-10 2019-02-10 Outpatient KAREN [facility] [id number] [place] 00:00:00 00:00:00 GABE [address] Results This patient has no known results.
--- NOTE | 2021-09-13 00:34 | EDPHYS ---
Physician Documentation [facility] Name: Olga Lujan Age: 31 yrs Sex: Female : 1990 Arrival Date: 09/12/2021 Time: 20:51 Bed 15 Private MD: ED Physician Mat Ag HPI: 09/12 22:05 This 31 yrs old Female presents to ER via Ambulatory with complaints of Drainage. mh7 22:05 The patient presents with abdominal distention that is diffuse. mh7 22:05 The symptoms do not radiate. mh7 22:05 Onset: The symptoms/episode began/occurred 4 day(s) ago. mh7 22:05 Associated signs and symptoms: Pertinent negatives: nausea, vomiting, and diarrhea, mh7 anorexia, blood in stools, chest pain, constipation, diarrhea, dysuria, fever, headache, hematuria, palpitations, shortness of breath, vaginal discharge, vomiting, vomiting blood. The symptoms are described as constant. Modifying factors: The symptoms are alleviated by nothing, the symptoms are aggravated by nothing. Severity of pain: At its worst the pain was mild 2 day(s) ago, in the emergency department the pain has improved moderately. Patient is on hospice for metastatic lymphoma and has had an abdominal and thoracic drain placed to relieve fluid accumulation. She states that her hospice nurse has been draining more fluid from abdomen recently than the maximum allowed of 500 ml. She was told to come to the ER to get fluid removed. She does not wish for any other care including admission and does not want to revoke her hospice.. 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 - Social history:: Smoking status: Patient denies any tobacco usage or history of. Patient/guardian denies using alcohol. ROS: 22:05 Constitutional: Negative for fever, chills, and weight loss, Eyes: Negative for injury, mh7 pain, redness, and discharge, ENT: Negative for injury, pain, and discharge, Neck: Negative for injury, pain, and swelling, Cardiovascular: Negative for chest pain, palpitations, and edema, Respiratory: Negative for shortness of breath, cough, wheezing, and pleuritic chest pain, Back: Negative for injury and pain, : Negative for injury, bleeding, discharge, and swelling, MS/Extremity: Negative for injury and deformity, Skin: Negative for injury, rash, and discoloration, Neuro: Negative for headache, weakness, numbness, tingling, and seizure, Psych: Negative for depression, anxiety, suicide ideation, homicidal ideation, and hallucinations, Allergy/Immunology: Negative for hives, rash, and allergies, Endocrine: Negative for neck swelling, polydipsia, polyuria, polyphagia, and marked weight changes, Hematologic/Lymphatic: Negative for swollen nodes, abnormal bleeding, and unusual bruising. Exam: 22:05 Head/Face: Normocephalic, atraumatic. Eyes: Pupils equal round and reactive to light, mh7 extra-ocular motions intact. Lids and lashes normal. Conjunctiva and sclera are non-icteric and not injected. Cornea within normal limits. Periorbital areas with no swelling, redness, or edema. Neck: Trachea midline, no thyromegaly or masses palpated, and no cervical lymphadenopathy. Supple, full range of motion without nuchal rigidity, or vertebral point tenderness. No Meningismus. Chest/axilla: Normal chest wall appearance and motion. Nontender with no deformity. No lesions are appreciated. Cardiovascular: Regular rate and rhythm with a normal S1 and S2. No gallops, murmurs, or rubs. Normal PMI, no JVD. No pulse deficits. Respiratory: Lungs have equal breath sounds bilaterally, clear to auscultation and percussion. No rales, rhonchi or wheezes noted. No increased work of breathing, no retractions or nasal flaring. 22:05 Back: No spinal tenderness. No costovertebral tenderness. Full range of motion. MS/ Extremity: Pulses equal, no cyanosis. Neurovascular intact. Full, normal range of motion. Neuro: Awake and alert, GCS 15, oriented to person, place, time, and situation. Cranial nerves II-XII grossly intact. Motor strength 5/5 in all extremities. Sensory grossly intact. Cerebellar exam normal. Normal gait. Psych: Awake, alert, with orientation to person, place and time. Behavior, mood, and affect are within normal limits. 22:05 Constitutional: The patient appears in no acute distress, alert, awake, frail. 22:05 Abdomen/GI: Inspection: distension, that is moderate, Bowel sounds: normal, in all quadrants, Palpation: abdomen is soft and non-tender, in all quadrants, Indicators: McBurney's point is not tender, Paredes's sign is negative, Rovsing's sign is negative, Obturator sign is negative, Psoas sign is negative, Liver: is enlarged, Hernia: not appreciated. 22:05 Skin: jaundice. Vital Signs: 21:14 BP 104 / 62; Pulse 125; Resp 18; Temp 98.2(O); Pulse Ox 95% on R/A; Weight 52.16 kg; ld1 Height 5 ft. 8 in. (172.72 cm); Pain 5/10; 21:14 Body Mass Index 17.49 (52.16 kg, 172.72 cm) ld1 MDM: 09/13 00:29 Differential diagnosis: abdominal distention, ascites, metastatic cancer, drainage mh7 problem. Data reviewed: vital signs, nurses notes. Data interpreted: Pulse oximetry: on room air is 95 %. Interpretation: normal. Counseling: I had a detailed discussion with the patient and/or guardian regarding: the historical points, exam findings, and any diagnostic results supporting the discharge/admit diagnosis, the need for outpatient follow up, to return to the emergency department if symptoms worsen or persist or if there are any questions or concerns that arise at home. Response to treatment: the patient's symptoms have markedly improved after treatment. ED course: Drainage of 500 ml of ascites fluid by nursing staff and dressing changed with no leakage. NAD, VSS, no focal neurological deficits. Patient states that she is ready for discharge.. 00:34 Patient medically screened. mh7 Administered Medications: No medications were administered Disposition Summary: 09/13/21 00:34 Discharge Ordered Location: Home health system Problem: an ongoing problem health system Symptoms: have improved mh Condition: Stable mh7 Diagnosis - Malignant ascites mh7 Followup: mh7 - With: Private Physician - When: 1 - 2 days - Reason: Worsening of condition, Recheck today's complaints, Continuance of care, Re-evaluation by your physician Followup: mh7 - With: Mitchell Carrillo MD - When: 1 - 2 days - Reason: Worsening of condition, Recheck today's complaints Discharge Instructions: - Discharge Summary Sheet health system - [facility] - [facility] Drainage Catheter Home Guide health system Forms: - Medication Reconciliation Form health system - Thank You Letter health system - Antibiotic Education health system - Prescription Opioid Use health system Signatures: Mat Ag MD MD health system Leslie Oliveira RN RN ld1 Corrections: (The following items were deleted from the chart) 09/12 23:40 23:32 Onset: The symptoms/episode began/occurred 4 day(s) ago, [place] [id number] 23:40 23:32 The symptoms do not radiate. [place] [id number]
--- NOTE | 2021-09-13 00:34 | ER ---
Nurse's Notes [facility] Name: Olga Lujan Age: 31 yrs Sex: Female : 1990 Arrival Date: 09/12/2021 Time: 20:51 Bed 15 Private MD: Diagnosis: Malignant ascites Presentation: 09/12 21:14 Chief complaint: Patient states: I was sent home on hospice from the hospital. Pt ld1 reports having fluid building up in abdomen. Dr. Lay put drains in my abdomen to drain fluid, it is leaking. My hospice nurse is only supposed to be draining 500ml per day and she has been draining 740, 820, 1000. I am still so bloated I can barely eat food. Coronavirus screen: At this time, the client does not indicate any symptoms associated with coronavirus-19. Ebola Screen: No symptoms or risks identified at this time. Initial Sepsis Screen: Does the patient meet any 2 criteria? Yes Does the patient have a suspected source of infection? No. Patient's initial sepsis screen is negative. Risk Assessment: Do you want to hurt yourself or someone else? Patient reports no desire to harm self or others. Onset of symptoms was September 12, 2021. 21:14 Method Of Arrival: Ambulatory ld1 21:14 Acuity: DAMASO 3 ld1 Triage Assessment: 21:16 General: Appears in no apparent distress. comfortable, Behavior is calm, cooperative, ld1 appropriate for age. Pain: Complains of pain in abdomen Pain does not radiate. Pain currently is 5 out of 10 on a pain scale. Quality of pain is described as bloating. EENT: No signs and/or symptoms were reported regarding the EENT system. Neuro: Level of Consciousness is awake, alert, obeys commands, Oriented to person, place, time, situation. Cardiovascular: Capillary refill < 3 seconds Patient's skin is warm and dry. Respiratory: Airway is patent Respiratory effort is even, unlabored. GI: Abdomen is round distended, Reports bloating. : No signs and/or symptoms were reported regarding the genitourinary system. Derm: No signs and/or symptoms reported regarding the dermatologic system. Musculoskeletal: No signs and/or symptoms reported regarding the musculoskeletal system. 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 - Social history:: Smoking status: Patient denies any tobacco usage or history of. Patient/guardian denies using alcohol. Screenin/02 00:44 Abuse screen: Denies threats or abuse. Nutritional screening: No deficits noted. vc1 Tuberculosis screening: No symptoms or risk factors identified. Fall Risk None identified. Assessment: 09/12 21:35 Reassessment: See triage assessment. vc1 22:00 Reassessment: Ui Designer looking for suction container used to drain patients vc1 abdomen. 22:00 General: Appears uncomfortable, Behavior is calm, appropriate for age. Pain: Complains vc1 of pain in abdomen. Neuro: Level of Consciousness is awake, alert, obeys commands, Oriented to person, place, time, situation, Appropriate for age. Cardiovascular: No deficits noted. Respiratory: No deficits noted. GI: Abdomen is noted to have ascites, Drain to left side of abdomen. : No deficits noted. EENT: Sclera/Cornea orange. Derm: Skin is jaundiced. 23:45 Reassessment: Patient and/or family updated on plan of care and expected duration. Pain vc1 level reassessed. Patient is alert, oriented x 3, equal unlabored respirations, skin warm/dry/pink. Pt. attached to suctioning. 500cc fluid removed, pt tolerated well. Drain on abdomen cleaned and dressed. Vital Signs: 21:14 BP 104 / 62; Pulse 125; Resp 18; Temp 98.2(O); Pulse Ox 95% on R/A; Weight 52.16 kg; ld1 Height 5 ft. 8 in. (172.72 cm); Pain 5/10; 21:14 Body Mass Index 17.49 (52.16 kg, 172.72 cm) ld1 ED Course: 20:51 Patient arrived in ED. ag3 21:16 Triage completed. ld1 21:16 Arm band placed on left wrist. ld1 21:45 Patient has correct armband on for positive identification. Bed in low position. Call vc1 light in reach. 21:53 Mat Ag MD is Attending Physician. [facility] 06 00:33 Mitchell Carrillo MD is Referral Physician. [facility] 00:40 No provider procedures requiring assistance completed. Patient did not have IV access vc1 during this emergency room visit. Administered Medications: No medications were administered Medication: 00:40 VIS not applicable for this client. vc1 Outcome: 00:34 Discharge ordered by . [facility] 00:40 Discharged to home via wheelchair, with family. vc1 00:40 Condition: good 00:40 Discharge instructions given to patient, family, Instructed on discharge instructions, follow up and referral plans. Demonstrated understanding of instructions, follow-up care. 00:44 Patient left the ED. vc1 Signatures: Mela Arizmendi 3 Mat Ag MD MD [facility] Leslie Oliveira, RN RN ld1 Marlena Guy RN RN vc1
[2021-09-13 01:15] VITALS: BP 104/62; TEMP 98.2; O2SAT 95
== END 2021-09-13 00:44 | disposition home or self-care (01) ==
LOC: ER 20:50
DX: C85.90 Non-Hodgkin lymphoma, unspecified, unspecified site (principal); R18.0 Malignant ascites; C22.0 Liver cell carcinoma
CPT/HCPCS: 99281

== ENCOUNTER 2021-10-10 13:58 | Observation (INO) | payer OTHER ==
[2021-10-10 15:27] LABS: Absolute Lymphocytes (CBC) 0.9 K/uL (0.7-4.9); Lymphocytes % 5.6 % (15.3-44.8); MCV 93.7 fL (80-100); MPV 8.1 fL (7.6-11.3); RBC Red Blood Cell Count 1.71 M/uL (3.86-4.86)
[2021-10-10] MEDS ORDERED: NA CHLORIDE 0.9% 1,000 ML ONE (15:31)
[2021-10-10 15:39] LABS: Potassium 3.2 mmol/L (3.5-5.1)
--- NOTE | 2021-10-10 15:45 | ER ---
Nurse's Notes [facility] Name: Olga Lujan Age: 31 yrs Sex: Female : 1990 Arrival Date: 10/10/2021 Time: 13:59 Bed 13 Private MD: Diagnosis: Anemia, unspecified Presentation: 10/10 14:23 Chief complaint: Patient states: she went in for pre-op labs and was called today by ap3 the lab and informed she needed a blood transfusion. Patient reports having a history of requiring a blood transfusion. Patient denies SOB, but does have an increase in fatigue. Coronavirus screen: At this time, the client does not indicate any symptoms associated with coronavirus-19. Ebola Screen: No symptoms or risks identified at this time. Initial Sepsis Screen: Does the patient meet any 2 criteria? No. Patient's initial sepsis screen is negative. Does the patient have a suspected source of infection? No. Patient's initial sepsis screen is negative. Risk Assessment: Do you want to hurt yourself or someone else? Patient reports no desire to harm self or others. Onset of symptoms was October 10, 2021. 14:23 Method Of Arrival: Ambulatory ap3 14:23 Acuity: DAMASO 3 ap3 Triage Assessment: 14:26 General: Appears slender, Behavior is calm, cooperative. Pain: Denies pain. Neuro: ap3 Level of Consciousness is awake, alert, obeys commands, Oriented to person, place, time, situation, Appropriate for age Speech is normal. Cardiovascular: Patient's skin is warm and dry. Respiratory: Airway is patent Respiratory effort is even, unlabored, Respiratory pattern is regular, symmetrical. GI: Abdomen is distended. Derm: Skin is dusky. 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 - Social history:: Smoking status: Patient reports the use of cigarette tobacco products, smokes one-half pack cigarettes per day. Screenin:27 Abuse screen: Denies threats or abuse. Nutritional screening: No deficits noted. ap3 Tuberculosis screening: No symptoms or risk factors identified. Fall Risk Fall in past 12 months (25 points). No secondary diagnosis (0 pts). IV access (20 points). Ambulatory Aid- None/Bed Rest/Nurse Assist (0 pts). Gait- Weak (10 pts.). Mental Status- Oriented to own ability (0 pts). Total Sanchez Fall Scale indicates High Risk Score (45 or more points). Fall prevention measures have been instituted. Side Rails Up X 2 Placed Close to Nursing Station Frequent Obs/Assessments Occuring Family Present and informed to notify staff if the need to leave the bedside As available patient and family educated on Fall Prevention Program and Strategies. Assessment: 15:27 General: Appears in no apparent distress. comfortable, Behavior is calm, cooperative, jd3 appropriate for age, Reports fatigue for >3 days. Pain: Denies pain. Neuro: Escobar Agitation-Sedation Scale (RASS): 0 - Alert and Calm Level of Consciousness is awake, alert, obeys commands, Oriented to person, place, time, situation. Cardiovascular: Denies chest pain, Capillary refill < 3 seconds Patient's skin is warm and dry. Respiratory: Airway is patent Respiratory effort is even, unlabored, Respiratory pattern is regular, symmetrical, Denies cough, shortness of breath. GI: No signs and/or symptoms were reported involving the gastrointestinal system. : No signs and/or symptoms were reported regarding the genitourinary system. EENT: No signs and/or symptoms were reported regarding the EENT system. Derm: Skin is intact, Skin is dry, Skin is pale, Skin temperature is cool. Musculoskeletal: Circulation, motion, and sensation intact. Range of motion: intact in all extremities. 16:27 Reassessment: Patient appears in no apparent distress at this time. Patient and/or jd3 family updated on plan of care and expected duration. Pain level reassessed. Patient is alert, oriented x 3, equal unlabored respirations, skin warm/dry/pink. 19:00 Reassessment: Patient and/or family updated on plan of care and expected duration. Pain vc1 level reassessed. Patient is alert, oriented x 3, equal unlabored respirations, skin warm/dry/pink. 21:00 Reassessment: Patient and/or family updated on plan of care and expected duration. Pain vc1 level reassessed. Patient is alert, oriented x 3, equal unlabored respirations, skin warm/dry/pink. Pt laying with eyes closed, no complaints at this time. 21:20 Reassessment: Pt transferred to [facility] via wheelchair, by MIKAYLA Call. vc1 Vital Signs: 14:23 BP 114 / 62; Pulse 127; Resp 18; Pulse Ox 99% ; Weight 57.61 kg; Height 5 ft. 8 in. ap3 (172.72 cm); 16:27 BP 96 / 54; Pulse 117; Resp 18 S; Pulse Ox 100% on R/A; jd3 19:00 BP 102 / 60; Pulse 115; Resp 18; Temp 98.2; Pulse Ox 100% ; vc1 20:00 BP 100 / 54; Pulse 116; Resp 19; Temp 98.8; Pulse Ox 100% ; vc1 21:04 BP 97 / 56; Pulse 115; Resp 15; Temp 98.8; Pulse Ox 97% on R/A; vc1 14:23 Body Mass Index 19.31 (57.61 kg, 172.72 cm) ap3 ED Course: 13:59 Patient arrived in ED. as 14:25 Triage completed. ap3 14:26 Ora Renee FNP-C [facility]. kb 14:26 Elijah Barroso MD is Attending Physician. kb 14:28 Carson Fernández RN is Primary Nurse. jd3 14:28 Arm band placed on left wrist. ap3 15:22 Accessed Port-a-Cath. Blood collected. using accessed w/ # 20 Marie needle, ,sterile jd3 technique, per hospital protocol. Clean \T\ dry. Dressing intact. Flushes easily. 15:29 Patient has correct armband on for positive identification. Bed in low position. Call jd3 light in reach. Side rails up X 1. Adult w/ patient. Pulse ox on. NIBP on. 15:45 Elyse Lima MD is Hospitalizing Provider. kb 21:19 No provider procedures requiring assistance completed. Patient admitted, IV remains in vc1 place. Administered Medications: 15:26 Drug: NS 0.9% 1000 ml Route: IV; Rate: 1000 ml; Site: Port-a-cath; jd3 16:25 Follow up: Response: No adverse reaction; IV Status: Completed infusion jd3 Medication: 15:22 VIS not applicable for this client. jd3 Outcome: 15:45 Decision to Hospitalize by Provider. kb 21:19 Admitted to Med/surg accompanied by nurse, via wheelchair, room 228, Report called to vc1 MIKAYLA Salazar 21:19 Condition: good 21:19 Instructed on the need for admit. 21:20 Patient left the ED. vc1 Signatures: Ora Renee, COORDINATING PRODUCER-C COORDINATING PRODUCER-Jolynn Salas Jonathon, RN RN jd3 Prokisch, Amanda RN RN Marlena Hinkle RN RN vc1 Corrections: (The following items were deleted from the chart) 16:27 16:02 Reassessment: Patient appears in no apparent distress at this time. Patient jd3 and/or family updated on plan of care and expected duration. Pain level reassessed. Patient is alert, oriented x 3, equal unlabored respirations, skin warm/dry/pink. jd3
--- NOTE | 2021-10-10 15:45 | EDPHYS ---
Physician Documentation [facility] Name: Olga Lujan Age: 31 yrs Sex: Female : 1990 Arrival Date: 10/10/2021 Time: 13:59 Bed 13 Private MD: TERRIE Physician Elijah Barroso HPI: 10/10 17:29 This 31 yrs old Female presents to ER via Ambulatory with complaints of Abnormal Lab kb Results. 17:33 Pt reports she had preop labs done this morning and was told to come to the ER because kb she needed a blood transfusion. Denies shortness of breath or palpitations. Denies any bleeding. States she has had some fatigue recently. Severity of symptoms: At their worst the symptoms were moderate in the emergency department the symptoms are unchanged. The patient has not experienced similar symptoms in the past. The patient has not recently seen a physician. 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 - Social history:: Smoking status: Patient reports the use of cigarette tobacco products, smokes one-half pack cigarettes per day. ROS: 17:28 Respiratory: Negative for shortness of breath, cough, wheezing, and pleuritic chest kb pain. 17:28 Constitutional: Positive for fatigue. 17:28 All other systems are negative. Exam: 17:28 Head/Face: Normocephalic, atraumatic. ENT: Moist Mucous membranes Cardiovascular: kb Regular rate and rhythm with a normal S1 and S2. No gallops, murmurs, or rubs. No pulse deficits. Respiratory: Respirations even and unlabored. No increased work of breathing. Talking in full sentences Skin: Warm, dry with normal turgor. Normal color. MS/ Extremity: Pulses equal, no cyanosis. Neurovascular intact. Full, normal range of motion. Neuro: Awake and alert, GCS 15, oriented to person, place, time, and situation. Moves all extremities. Normal gait. Psych: Awake, alert, with orientation to person, place and time. Behavior, mood, and affect are within normal limits. 17:28 Constitutional: The patient appears alert, awake, pale. 17:34 Abdomen/GI: Rectal exam: the exam is deferred, because of patient request. kb Vital Signs: 14:23 BP 114 / 62; Pulse 127; Resp 18; Pulse Ox 99% ; Weight 57.61 kg; Height 5 ft. 8 in. ap3 (172.72 cm); 16:27 BP 96 / 54; Pulse 117; Resp 18 S; Pulse Ox 100% on R/A; jd3 19:00 BP 102 / 60; Pulse 115; Resp 18; Temp 98.2; Pulse Ox 100% ; vc1 20:00 BP 100 / 54; Pulse 116; Resp 19; Temp 98.8; Pulse Ox 100% ; vc1 21:04 BP 97 / 56; Pulse 115; Resp 15; Temp 98.8; Pulse Ox 97% on R/A; vc1 14:23 Body Mass Index 19.31 (57.61 kg, 172.72 cm) ap3 MDM: 14:26 Patient medically screened. kb 17:28 Data reviewed: vital signs, nurses notes. Data interpreted: Pulse oximetry: on room air kb is 100 %. Interpretation: normal. Counseling: I had a detailed discussion with the patient and/or guardian regarding: the historical points, exam findings, and any diagnostic results supporting the discharge/admit diagnosis, lab results, the need for further work-up and treatment in the hospital. 17:29 Physician consultation: Elyse Lima MD was contacted at 15:43, regarding admission, kb patient's condition, and will see patient in ED. 10/10 14:28 Order name: CBC with Diff; Complete Time: 15:39 kb 10/10 14:28 Order name: Basic Metabolic Panel; Complete Time: 15:41 kb 10/10 14:28 Order name: Type And Screen 10/10 15:33 Order name: ABO/RH typing EDSD 10/10 15:33 Order name: Antibody Screen EDSD 10/10 15:33 Order name: Packed RBC Leukored EDSD 10/10 16:07 Order name: BB Add On EDMS 10/10 16:07 Order name: Basic Metabolic Panel EDSD 10/10 16:07 Order name: Basic Metabolic Panel EDSD 10/10 16:07 Order name: CBC with Automated Diff EDSD 10/10 16:07 Order name: CBC with Automated Diff EDMS 10/10 16:07 Order name: Hematocrit EDMS 10/10 16:07 Order name: Hematocrit EDMS 10/10 16:07 Order name: Hematocrit EDMS 10/10 16:07 Order name: CONS Physician Consult EDMS 10/10 16:07 Order name: Regular EDMS 10/10 16:07 Order name: EKG Electrocardiogram EDMS 10/10 16:07 Order name: EKG Electrocardiogram EDMS 10/10 16:07 Order name: EKG Electrocardiogram EDMS 10/10 16:07 Order name: EKG Electrocardiogram EDMS 10/10 16:07 Order name: EKG Electrocardiogram EDMS 10/10 16:07 Order name: Hemoglobin EDMS 10/10 16:07 Order name: Hemoglobin EDMS 10/10 16:07 Order name: Hemoglobin EDMS 10/10 16:07 Order name: Protime (+INR) EDMS 10/10 16:07 Order name: Protime (+INR) EDMS 10/10 16:07 Order name: PTT, Activated Partial Thromb EDMS 10/10 16:07 Order name: PTT, Activated Partial Thromb EDMS 10/10 19:18 Order name: COVID-19 SARS RT PCR (Document "Date of Onset" if Symptomatic) bb 10/10 14:28 Order name: IV Start; Complete Time: 15:21 kb 10/10 16:07 Order name: EKG Electrocardiogram EDMS 10/10 16:07 Order name: EKG Electrocardiogram EDMS 10/10 16:07 Order name: EKG Electrocardiogram EDMS 10/10 16:07 Order name: EKG Electrocardiogram EDMS 10/10 16:07 Order name: EKG Electrocardiogram EDMS 10/10 16:07 Order name: EKG Electrocardiogram EDMS Administered Medications: 15:26 Drug: NS 0.9% 1000 ml Route: IV; Rate: 1000 ml; Site: Port-a-cath; jd3 16:25 Follow up: Response: No adverse reaction; IV Status: Completed infusion jd3 Disposition Summary: 10/10/21 15:45 Hospitalization Ordered Hospitalization Status: Inpatient Admission kb Provider: Elyse Lima Location: Telemetry/MedSurg (Inpatient) kb Condition: Stable kb Problem: new kb Symptoms: are unchanged kb Bed/Room Type: Standard kb Room Assignment: 228(10/10/21 19:50) eb1 Diagnosis - Anemia, unspecified kb Forms: - Medication Reconciliation Form kb - SBAR form kb Signatures: Dispatcher [employer] Ora Singletary, LILLIAN CERVANTES-Turner Moreno PA PA jmm Davies, Jonathon, RN RN jd3 Dori Bolanos RN RN ap3 Oneyda Woody RN RN eb1 Corrections: (The following items were deleted from the chart) 19:50 15:45 kb eb1
[2021-10-10] MEDS ORDERED: ACETAMINOPHEN 500 MG TAB PO PRN (16:02)
[2021-10-10] MEDS ORDERED: NA CHLORIDE 0.9% 250 ML IV SCH (17:00)
[2021-10-10] MEDS: MORPHINE 2 MG/ML SYR IV PRN ×2 (18:06→22:37)
[2021-10-10] MEDS ORDERED: MORPHINE 2 MG/ML SYR ONE (18:07)
[2021-10-10] MEDS ORDERED: DIPHENHYDRAMINE 50 MG/ML VIAL ONE (18:48)
[2021-10-10] MEDS ORDERED: ACETAMINOPHEN 325 MG TABLET ONE (18:48)
[2021-10-10] MEDS ORDERED: NA CHLORIDE 0.9% 500 ML ONE (18:49)
[2021-10-10 22:07] VITALS: BMI 19.0
[2021-10-10] MEDS: NA CHLORIDE 0.9% 1,000 ML IV SCH (22:37)
[2021-10-10] MEDS: PANTOPRAZOLE 40 MG INJ IVP SCH (22:47)
[2021-10-11] MEDS: NA CHLORIDE 0.9% 1,000 ML IV SCH ×2 (05:41→19:40)
[2021-10-11 05:46] LABS: Protime INR 1.65
[2021-10-11] MEDS: MORPHINE 2 MG/ML SYR IV PRN ×3 (06:52→19:25)
[2021-10-11] MEDS: SODIUM CHLORIDE 0.9% 10ML INJ IV SCH (08:32)
[2021-10-11] MEDS: PANTOPRAZOLE 40 MG INJ IVP SCH ×2 (08:32→21:00)
[2021-10-11] MEDS ORDERED: POTASSIUM CL SA 10 MEQ TAB PO ONE (09:01)
[2021-10-11] MEDS ORDERED: KCL 20 MEQ/100 mL IVPB 100 ML IV ONE (09:03)
[2021-10-11 10:48] LABS: Absolute Lymphocytes (CBC) 0.9 K/uL (0.7-4.9); Hematocrit 29.4 % (36.0-45.0); Lymphocytes % 5.1 % (15.3-44.8); MCV 90.2 fL (80-100); RBC Red Blood Cell Count 3.25 M/uL (3.86-4.86)
[2021-10-11] MEDS ORDERED: NA CHLORIDE 0.9% 250 ML ONE (10:53)
[2021-10-11] MEDS: ONDANSETRON 4 MG/2 ML VIAL IV PRN ×2 (11:52→23:30)
[2021-10-11] MEDS ORDERED: Ringers Lactate 1,000 ML IV ONE (12:19)
[2021-10-11] MEDS ORDERED: CEFAZOLIN SODIUM 1 GM/VIAL ONE (12:30)
[2021-10-11] MEDS ORDERED: MIDAZOLAM HCL 2 MG/2 ML INJ ONE (12:40)
[2021-10-11] MEDS ORDERED: propofoL 200 MG/20 ML VIAL IV ONE ×2 (12:48→13:10)
[2021-10-11] MEDS ORDERED: LIDOCAINE 2% MPF 5 ML VIAL ONE (12:48)
[2021-10-11] MEDS ORDERED: FENTANYL CITR 100 MCG/2 ML ONE ×2 (12:58→20:31)
[2021-10-11] MEDS ORDERED: Phenylephrine HCl 10 MG/ML 1 ML VIAL ONE (13:11)
--- NOTE | 2021-10-11 13:49 | P.OP ---
Preoperative diagnosis: RIGHT pleur-X tube dysfunction, pleur-X peritoneal tube dysfunction Postoperative diagnosis: RIGHT pleur-X tube dysfunction, pleur-X peritoneal tube dysfunction Primary procedure: Removal of RIGHT Pleur-X Thoracostomy Tube & Peritoneal Tube Secondary procedure: re-placement of LEFT peritoneal PleurX catheter Anesthesia: MAC + Local Estimated blood loss: <1cc Specimen: peritoneal fluid sent for analysis Findings: straw colored peritoneal fluid Complications: None Drain(s): Other (PleurX peritoneal catheter) Transferred to: Recovery Room Condition: Good
[2021-10-11] MEDS ORDERED: MORPHINE 4 MG/ML SYR ONE (14:13)
--- NOTE | 2021-10-11 14:42 | RAD REPORT ---
EXAM DESCRIPTION: RAD - Chest Single View - 10/11/2021 2:13 pm CLINICAL HISTORY: s/p removal of chest pleurex cath Chest pain. COMPARISON: Chest Pa And Lat (2 Views) dated 10/10/2021; Chest Single View dated 08/07/2021; Chest Sin gle View dated 08/07/2021; Chest Single View dated 08/05/2021 FINDINGS: Portable technique limits examination quality. Right port catheter is in place with its tip in the SVC. Moderate right lower lobe lung opacities pre sent, essentially unchanged since earlier study. Previously noted right-sided chest tube has been rem dexter. No pneumothorax seen.
[2021-10-11 18:39] LABS: Body Fluid WBC 381 /mm^3
[2021-10-11 19:09] LABS: Body Fluid Source PERITONEAL; Color of fluid Yellow (COLORLESS)
[2021-10-11 19:10] LABS: Appearance SLT. TURBID (CLEAR)
--- NOTE | 2021-10-11 19:51 | RAD REPORT ---
EXAM DESCRIPTION: US - Extrem Venous W Compress David - 10/11/2021 7:30 pm CLINICAL HISTORY: DAVID LOWER LEG SWELLING AND PAIN Bilateral leg edema and swelling. COMPARISON: EXT VENOUS UNI LTD dated 11/09/2014 TECHNIQUE: Real-time sonographic interrogation of the left and right lower extremity deep venous sys tems was performed. FINDINGS: Normal compressibility, flow augmentation, phasic flow and spontaneous flow is identified in both the left and right lower extremity deep venous systems. Prominent lymph nodes are seen in the right groin. IMPRESSION: No sonographic evidence of left or right lower extremity deep venous thrombosis.
[2021-10-11] MEDS ORDERED: FENTANYL CITR 100 MCG/2 ML IV ONE (20:24)
[2021-10-11] MEDS ORDERED: FENTANYL CITR 100 MCG/2 ML IV PRN (23:15)
[2021-10-12] MEDS ORDERED: HYDROMORPHONE HCL 1 MG/ML INJ IV ONE ×2 (01:04→06:33)
--- NOTE | 2021-10-12 01:33 | OP ---
Date of Procedure: 10/11/2021 Surgeon: Billy Casillas MD, Preoperative Diagnoses: 1.Right thoracic PleurX tube dysfunction. 2.Left peritoneal PleurX catheter dysfunction. Postoperative Diagnoses: 1.Right thoracic PleurX tube dysfunction. 2.Left peritoneal PleurX catheter dysfunction. Procedure Performed: 1.Removal of right thoracic PleurX catheter tube. 2.Removal of left abdominal peritoneal PleurX catheter tube. 3.Replacement of left abdominal PleurX peritoneal tube using ultrasound guidance. Anesthesia: MAC plus local, 0.25% Marcaine with epinephrine. Estimated Blood Loss: Less than 1 cc. Specimen: Peritoneal fluid sent for analysis. Findings: Straw-colored peritoneal fluid. Complications: None. Drains: PleurX catheter placed in the left abdominal compartment and intraperitoneal. Condition: The patient was transferred to the recovery room in good condition. Procedure In Detail: After informed consent was obtained, patient was brought to the operating room, prepped and draped in usual sterile fashion. After adequate anesthesia was achieved, I placed a gen tle traction on the right chest, thoracic PleurX catheter tube to bring the cuff into the field. In the visual field, I used Metzenbaum scissors to trim the ingrowth of tissue around the cuff. At this point, pressure was held at the insertion site and the catheter was removed and sent off on the back table. The incision site was then copiously irrigated and closed with 2 interrupted 3-0 nylon sutur es and a sterile dressing placed over the top. I then turned my attention to the left pleural compar tment. Using ultrasound guidance, I was able to find a good safe spot away from intestines without s ignificant abdominal wall motion and I made a small incision overlying the insertion site using ultra sound guidance. I then placed the needle into the peritoneal compartment and the catheter was advanc ed. The needle was removed and straw-colored peritoneal fluid was removed. Wire was advanced at thi s point. I then made a counter incision 45 cm superior from the insertion site and made an incision site in this area after anesthetizing track. I used a tunneling device to pass the PleurX catheter t hrough the insertion site. I then performed sequential dilatation over the wire using Seldinger tech nique and advanced the catheter through the introducer sheath into the peritoneal cavity without evid ence of complication. At this point, the introducer sheath was removed in its entirety and no leakag e was appreciated at this point. I then irrigated the insertion site and closed this with the 2-0 si lk suture on a Ever needle, which was attached in set and a sterile dressing was brought in this por tion. I then grasped the previously placed PleurX catheter, which had the cuff exposed on the left a bdominal wall, which was superior from the newly inserted catheter. I brought the cuff in the field and I similarly used Metzenbaum scissors to remove this ingrowth of tissue surrounding the cuff. The cuff was then removed and the catheter was removed while holding pressure on the abdominal wall. Th e incision area was irrigated. There was some peritoneal fluid emanating from this. I then closed t he insertion site with 2 interrupted nylon sutures of 3-0 nylon sutures and achieved good watertight seal. A sterile dressing was placed over the top of this portion. I then drained approximately 1 L of peritoneal fluid from the newly placed PleurX catheter without any evidence of complication and se nt off for pathologic examination. Sterile dressings were applied to all dressings and the patient t olerated the procedure well without any evidence of complication, transferred to PACU in good condition. All counts were correct at the end of the case. RADHA/ROBERTL Voice ID: [id number] Report ID: [id number]
[2021-10-12] MEDS: HYDROMORPHONE HCL 1 MG/ML INJ IV PRN ×2 (04:26→09:32)
[2021-10-12] MEDS: SODIUM CHLORIDE 0.9% 10ML INJ IV SCH (07:40)
[2021-10-12] MEDS: PANTOPRAZOLE 40 MG INJ IVP SCH (07:40)
[2021-10-12 08:41] VITALS: BP 110/61
[2021-10-12] MEDS: NA CHLORIDE 0.9% 1,000 ML IV SCH (09:00)
[2021-10-12 10:23] VITALS: O2SAT 93
[2021-10-12 10:25] VITALS: TEMP 96.5
[2021-10-12] MEDS ORDERED: HEPARIN 500 UNIT/5 ML SYR IV PRN (10:40)
--- NOTE | 2021-10-13 23:41 | P.HP ---
Certification for Inpatient Patient admitted to: Observation With expected LOS: <2 Midnights Patient will require the following post-hospital care: None Practitioner: I am a practitioner with admitting privileges, knowledge of patient current condition, hospital course, and medical plan of care. Services: Services provided to patient in accordance with Admission requirements found in Title 42 Section 412.3 of the Code of Federal Regulations Patient History Date of Service: 10/10/21 Reason for admission: severe anemia History of Present Illness: patient is a 31-year-old female who came to the hospital with severe anemia. Patient was found to have a hemoglobin 6 range. She was history of lymphoma that has not been treated. She has been on hospice care. She will be admitted for blood transfusion. She plans to go back to hospice care at discharge. Allergies No Known Drug Allergies Allergy (Verified 10/10/21 10:24) Unknown Home Medications: Morphine Oral Syrup [Morphine Oral Syrup*] 0.25 ml PO Q1H PRN 08/09/21 Morphine *Extended Release* [MS Contin*] 15 mg PO DAILY 10/10/21 clonazePAM [Klonopin] 0.5 mg PO TIDP PRN 10/10/21 levoFLOXacin [Levaquin*] 500 mg PO DAILY 10/10/21 - Past Medical/Surgical History Has patient received pneumonia vaccine in the past: No Diabetic: No -: Van lymphoma -: -: Feet reconstruction -: Lymph node excision -: Port-A-Cath insertion -: Appendectomy Psychosocial/ Personal History: Pt lives at home with family - Family History Father Notes: no medical condition Mother Medical History: Cancer Notes: bone ca - Social History Smoking Status: Current every day smoker Alcohol use: No CD- Drugs: No Caffeine use: Yes Place of Residence: Home Review of Systems 10-point ROS is otherwise unremarkable Physical Examination - Vital Signs Temperature: 96.5 F Blood Pressure: 110/61 Pulse: 132 Respirations: 18 Pulse Ox (%): 93 - Physical Exam General: Alert, In no apparent distress, Cachectic HEENT: Atraumatic, PERRLA, Mucous membr. moist/pink, EOMI, Sclerae nonicteric Neck: Supple, 2+ carotid pulse no bruit, No LAD, Without JVD or thyroid abnormality Respiratory: Clear to auscultation bilaterally, Normal air movement Cardiovascular: Regular rate/rhythm, Normal S1 S2 Gastrointestinal: Normal bowel sounds, No tenderness Musculoskeletal: No tenderness Integumentary: No rashes Neurological: Normal gait, Normal speech, Normal strength at 5/5 x4 extr, Normal tone, Normal affect Lymphatics: No axilla or inguinal lymphadenopathy Assessment & Plan - Problems (Diagnosis) (1) Severe anemia Status: Acute (2) Hodgkins lymphoma Status: Acute - Plan Plan: 1. Transfuse 3 units of packed red blood cells 2. Change paracentesis drain 3. surgery consultation 4. Gi and DVT prophylax - Advance Directives Does patient have a Living Will: Yes Does patient have a Durable POA for Healthcare: No
--- NOTE | 2021-10-13 23:43 | P.PN ---
Subjective Date of Service: 10/11/21 Subjective: No new changes, No C/O voiced, Improving Review of Systems 10-point ROS is otherwise unremarkable Physical Examination - Vital Signs Temperature: 96.5 F Blood Pressure: 110/61 Pulse: 132 Respirations: 18 Pulse Ox (%): 93 - Physical Exam General: Alert, In no apparent distress, Oriented x3 HEENT: Atraumatic, PERRLA, EOMI Neck: Supple, JVD not distended Respiratory: Clear to auscultation bilaterally, Normal air movement Cardiovascular: Regular rate/rhythm, Normal S1 S2 Gastrointestinal: Normal bowel sounds, No tenderness Musculoskeletal: No tenderness Integumentary: No rashes Neurological: Normal speech, Normal tone, Normal affect Lymphatics: No axilla or inguinal lymphadenopathy - Studies Medications List Reviewed: Yes Assessment & Plan - Problems (Diagnosis) (1) Severe anemia Status: Acute (2) Hodgkins lymphoma Status: Acute - Plan Plan: 1. patient's hemoglobin has stabilized. Anticipate discharge once paracentesis catheter is changed 2. arrange for hospice at discharge 3. surgery consultation appreciated 4. Gi and DVT prophylax Discharge Plan: Home Plan to discharge in: 24 Hours - Advance Directives Does patient have a Living Will: Yes Does patient have a Durable POA for Healthcare: No Critical Care: No Time Spent Managing PTS Care (In Minutes): 33
--- NOTE | 2021-10-13 23:46 | P.DS ---
Discharge Date: 10/12/21 Disposition: ROUTINE DISCHARGE Discharge Condition: GOOD Reason for Admission: severe anemia - Problems (1) Severe anemia Status: Acute (2) Hodgkins lymphoma Status: Acute Brief History of Present Illness: patient is a 31-year-old female who came to the hospital with severe anemia. Patient was found to have a hemoglobin 6 range. She was history of lymphoma that has not been treated. She has been on hospice care. She will be admitted for blood transfusion. She plans to go back to hospice care at discharge. Hospital Course: patient is doing well after blood transfusion. Patient is stable for discharge with outpatient follow-up with hospice care. Vital Signs/Physical Exam: Temp Pulse Resp BP Pulse Ox 96.5 F L 132 H 18 110/61 93 10/13/21 23:42 10/13/21 23:42 10/13/21 23:42 10/13/21 23:42 10/13/21 23:42 General: Alert, In no apparent distress, Oriented x3 Laboratory Data at Discharge: WBC Cancelled 10/11/21 15:02 Hgb Cancelled 10/11/21 15:02 Hct Cancelled 10/11/21 15:02 Plt Count Cancelled 10/11/21 15:02 PT 18.3 SECONDS (9.5-12.5) H 10/11/21 04:36 INR 1.65 10/11/21 04:36 APTT 41.4 SECONDS (24.3-36.9) H 10/11/21 04:36 Sodium 135 mmol/L (136-145) L 10/11/21 04:36 Potassium 3.0 mmol/L (3.5-5.1) L 10/11/21 04:36 BUN 15 mg/dL (7-18) 10/11/21 04:36 Creatinine 0.32 mg/dL (0.55-1.3) L 10/11/21 04:36 Glucose 77 mg/dL (74-106) 10/11/21 04:36 Cholesterol Cancelled 10/11/21 15:02 Home Medications: Morphine Oral Syrup [Morphine Oral Syrup*] 0.25 ml PO Q1H PRN 08/09/21 Morphine *Extended Release* [MS Contin*] 15 mg PO DAILY 10/10/21 clonazePAM [Klonopin] 0.5 mg PO TIDP PRN 10/10/21 levoFLOXacin [Levaquin*] 500 mg PO DAILY 10/10/21 Physician Discharge Instructions: OK TO DC IV AND DC HOME w/ hospice FOLLOW-UP WITH PRIMARY CARE PROVIDER IN 1-2 WEEKS FOLLOW-UP WITH Oncology as needed RETURN TO THE ER IF symptoms worsen CALL DR. HONG AT [phone] IF ANY QUESTIONS REGARDING HOSPITAL STAY. PLEASE CALL THE FLOOR AT [phone] IF ANY MEDICATION OR NURSING QUESTIONS. Diet: Regular Activity: Ad tresa Followup: Billy Casillas MD [ACTIVE - CAN ADMIT] - (Call to schedule appointment.) EAN ROBLES [Primary Care Provider] - (Call to schedule appointment) Time spent managing pt's care (in minutes): 35
[2021-10-15 18:29] LABS: GLUCOSE, PERITONEAL FLUID 58 mg/dL; LD, PERITONEAL FLUID 88 U/L (<63); TOTAL PROTEIN,PERITONEAL FLUID <3.0 g/dL
== END 2021-10-12 11:15 | disposition home or self-care (01) ==
LOC: ER 13:58 → ERHOLD 16:02 → 2ND 20:45
PROVIDERS: ADMIT Hospitalist; ATTEND Hospitalist
PROC: 0WPGX3Z Removal of Infusion Device from Peritoneal Cavity, External Approach (ICD-10-PCS; 2021-10-11)
PROC: 0WP9X3Z Removal of Infusion Device from Right Pleural Cavity, External Approach (ICD-10-PCS; 2021-10-11)
PROC: 0WHG33Z Insertion of Infusion Device into Peritoneal Cavity, Percutaneous Approach (ICD-10-PCS; principal; 2021-10-11 12:30)
DX: D64.9 Anemia, unspecified (principal); T85.618A Breakdown (mechanical) of other specified internal prosthetic devices, implants and grafts, initial encounter; C81.90 Hodgkin lymphoma, unspecified, unspecified site; R18.0 Malignant ascites; J91.0 Malignant pleural effusion; C22.8 Malignant neoplasm of liver, primary, unspecified as to type; F17.210 Nicotine dependence, cigarettes, uncomplicated; Z28.310 Unvaccinated for COVID-19; Z80.8 Family history of malignant neoplasm of other organs or systems
CPT/HCPCS: 36415; 36430; 71045; 80048; 82945; 83615; 84157; 84311; 85025; 85610; 85730; 86850; 86900; 86901; 86902; 86922; 88108; 88305; 89050; 93970; 96360; 99285; C9113; G0378; J0690; J1170; J1200; J1642; J2250; J2270; J2370; J2405; J2704; J3010; J3480; J7030; J7040; J7050; J7120; P9016; P9059